=== PATIENT | female | born 1970 | race Two or more races ===

== ENCOUNTER 2016-02-22 16:38 | Emergency (ER) | payer OTHER ==
[~2016-02-22] VITALS: Ht 165.1 cm; Wt 90.7 kg
[~2016-02-22 16:38] MED LIST: ABILIFY10 MG ORAL; ALBUTEROL SULF8.5 GM INH; AMOXICILLIN500 MG ORAL; AMOXICILLIN500 MG PO; ATENOLOL25 MG ORAL; AUGMENTIN 875-1 EAC1 ORAL; AZITHROMYCIN250 MG ORAL; BENADRYL25 M3 PO; CITALOPRAM HBR20 M1 ORAL; CLEOCIN100 MG VG; DIFLUCAN150 MG PO; FLAGYL500 MG ORAL; HYDROCHLOROTHIA25 MG ORAL; HYDROCORTISO1 APPLIC TOPIC; IBUPROFEN600 M1 PO; IBUPROFEN600 MG ORAL; IBUPROFEN600 MG PO; KETOCONAZOLE15 GM TOP; LATUDA80 MG PO; LEVAQUIN750 MG ORAL; LITHIUM CARBON150 MG ORAL; LORAZEPAM0.5 MG ORAL; METROGEL-VAGINA70 G1 VAGIN; METRONIDAZOLE45 G1 TOPIC; METRONIDAZOLE500 MG ORAL; MULTI VITAMIN1 EACH ORAL; NEURONTIN600 MG PO; NIFEDIPINE XL30 M1 ORAL; NITROFURANTOIN100 M2 ORAL; NKM; NORCO 5-325 TA1 EACH ORAL; NORCO 5-325 TA1 EACH PO; OCUFLOX5 ML OP; QUETIAPINE FUMA25 MG ORAL; ROBITUSSIN LON118 ML PO; SEROQUEL200 MG ORAL; SEROQUEL25 MG ORAL; SKELAXIN800 MG PO; TEGRETOL200 MG PO; TERAZOL 320 GM VG; VIBRAMYCIN100 MG ORAL; XOPENEX HFA15 GM INH; ZOFRAN ODT4 MG ORAL
--- NOTE | 2016-02-22 17:02 | Emergency Room Report ---
History of Present Illness General Chief Complaint: Dizziness Source: Patient Present Illness HPI Patient is a 45-year-old female who presented after having increased dizziness. The patient reports having increased spinning sensation worse with head movement. The patient denies any recent fever or ear pain or ringing in her ears. The patient denies worsening of dizziness with upright position. She had recently been started on Invega. She receives [facility] 3 months through [facility]. The patient reports having a gradual onset of symptoms. Allergies: Coded Allergies: LITHIUM (Unverified Allergy, Unknown, 06/13/14) PREDNISONE (Verified Allergy, Unknown, 12/27/13) SULFA (SULFONAMIDE ANTIBIOTICS) (Unverified Allergy, Unknown, 06/13/14) Patient History Past Medical History: see triage record Last Menstrual Period: 02/10/16 Now: No Reviewed Nursing Documentation: PMH: Agreed, PSxH: Agreed Nursing Documentation-PMH Hx Cardiac Problems: No - right leg cyst, tonsillectomy Hx Hypertension: No Hx Pacemaker: No Hx Asthma: No Hx COPD: No Hx Diabetes: No Hx Cancer: No Hx Dialysis: No Hx Neurological Problems: No Hx Cerebrovascular Accident: No Hx Seizures: No Review of Systems All Other Systems: negative except mentioned in HPI Physical Exam Vital Signs Date Time Temp Pulse Resp B/P Pulse Ox O2 Delivery O2 Flow Rate FiO2 02/22/16 16:49 98.1 112 17 139/83 96 Room Air Sp02 EP Interpretation: reviewed, normal General Appearance: normal inspection, well appearing, no apparent distress, alert, GCS 15 Head: atraumatic ENT: normal ENT inspection, hearing grossly normal, normal voice Neck: normal inspection, full range of motion, supple, no bony tend Respiratory: normal inspection, lungs clear, normal breath sounds, no respiratory distress, no retraction, no wheezing Cardiovascular #1: regular rate, rhythm, no edema Gastrointestinal: normal inspection, normal bowel sounds, non tender, soft, no guarding, no hernia Genitourinary: no CVA tenderness Musculoskeletal: normal inspection, back normal, normal range of motion Neurologic: normal inspection, alert, oriented x3, responsive, pinion sorter III-XII nml as tested, speech normal Psychiatric: normal inspection, judgement/insight normal, mood/affect normal Skin: normal inspection, normal color, no rash Medical Decision Making Diagnostic Impression: Primary Impression: Benign paroxysmal positional vertigo ER Course Patient presented for dizziness. Differential diagnosis included was not limited to CVA, vertebrobasilar insufficiency, myocardial infarction, benign positional vertigo, labyrinthitis, aspirin overdose among others. Because of complexity of patient's case laboratory testing and imaging studies were ordered. The patient was given oral meclizine. The patient is advised to follow up with primary care doctor in 1-2 days. Patient is advised to return if any worsening condition or if any changes in status that are concerning. Labs Test 02/22/16 17:10 White Blood Count 8.1 K/UL (4.8-10.8) Red Blood Count 4.92 M/UL (4.20-5.40) Hemoglobin 14.8 G/DL (12.0-16.0) Hematocrit 45.4 % (37.0-47.0) Mean Corpuscular Volume 92 FL (80-99) Mean Corpuscular Hemoglobin 30.0 PG (27.0-31.0) Mean Corpuscular Hemoglobin Concent 32.6 G/DL (32.0-36.0) Red Cell Distribution Width 12.9 % (11.6-14.8) Platelet Count 269 K/UL (150-450) Mean Platelet Volume 6.5 FL (6.5-10.1) Neutrophils (%) (Auto) 58.5 % (45.0-75.0) Lymphocytes (%) (Auto) 32.0 % (20.0-45.0) Monocytes (%) (Auto) 6.1 % (1.0-10.0) Eosinophils (%) (Auto) 2.4 % (0.0-3.0) Basophils (%) (Auto) 1.1 % (0.0-2.0) Urine Color Yellow Urine Appearance Clear Urine pH 6 (4.5-8.0) Urine Specific [place] 1.025 (1.005-1.035) Urine Protein 1+ (NEGATIVE) Urine Glucose (UA) Negative (NEGATIVE) Urine Ketones Negative (NEGATIVE) Urine Occult Blood Negative (NEGATIVE) Urine Nitrite Negative (NEGATIVE) Urine Bilirubin Negative (NEGATIVE) Urine Urobilinogen 1 MG/DL (0.0-1.0) Urine Leukocyte Esterase 1+ (NEGATIVE) Urine RBC 0-2 /HPF (0 - 2) Urine WBC 0-2 /HPF (0 - 2) Urine Squamous Epithelial Cells Many /LPF (NONE/OCC) Urine Bacteria Moderate /HPF (NONE) Sodium Level 141 mEQ/L (135-145) Potassium Level 3.8 mEQ/L (3.4-4.9) Chloride Level 101 mEQ/L (98-107) Carbon Dioxide Level 25 mEQ/L (20-30) Anion Gap 15 (5-15) Blood Urea Nitrogen 11 mg/dL (7-23) Creatinine 0.8 mg/dL (0.5-0.9) Estimat Glomerular Filtration Rate > 60 mL/min (>60) Glucose Level 110 mg/dL (74-106) Calcium Level 9.7 mg/dL (8.6-10.2) Total Bilirubin 0.3 mg/dL (0.0-1.2) Aspartate Amino Transf (AST/SGOT) 12 U/L (5-40) Alanine Aminotransferase (ALT/SGPT) 8 U/L (3-33) Alkaline Phosphatase 80 U/L (35-104) Troponin I < 0.30 ng/mL (<=0.30) Total Protein 7.7 g/dL (6.6-8.7) Albumin 3.9 g/dL (3.5-5.2) Globulin 3.8 g/dL Albumin/Globulin Ratio 1.0 (1.0-2.7) Lipase 26 U/L (< 60) Urine Opiates Screen Negative (NEGATIVE) Urine Barbiturates Screen Negative (NEGATIVE) Phencyclidine (PCP) Screen Negative (NEGATIVE) Urine Amphetamines Screen Negative (NEGATIVE) Urine Benzodiazepines Screen Negative (NEGATIVE) Urine Cocaine Screen Negative (NEGATIVE) Urine Marijuana (THC) Screen Negative (NEGATIVE) Serum Alcohol < 10 mg/dL Last Vital Signs Date Time Temp Pulse Resp B/P Pulse Ox O2 Delivery O2 Flow Rate FiO2 02/22/16 16:49 98.1 112 17 139/83 96 Room Air Status: improved Disposition: HOME, SELF-CARE Condition: Stable Scripts Meclizine Hcl* (MECLIZINE*) 25 Mg Tablet 25 MG ORAL THREE TIMES A DAY, #14 TAB Prov: Ignacio Aguilar 02/22/16 Ignacio Aguilar Feb 22, 2016 17:02
[2016-02-22 17:19] LABS: BASOPHILS % (AUTO) 1.1 % (0.0-2.0); EOSINOPHILS % (AUTO) 2.4 % (0.0-3.0); MEAN CORPUSCULAR HGB CONC 32.6 G/DL (32.0-36.0); MEAN CORPUSCULAR VOLUME 92 FL (80-99); MEAN PLATELET VOLUME 6.5 FL (6.5-10.1); MONOCYTES % (AUTO) 6.1 % (1.0-10.0); NEUTROPHILS % (AUTO) 58.5 % (45.0-75.0); PLATELET COUNT 269 K/UL (150-450); RED BLOOD COUNT 4.92 M/UL (4.20-5.40); RED CELL DISTRIBUTION WIDTH 12.9 % (11.6-14.8); WHITE BLOOD COUNT 8.1 K/UL (4.8-10.8)
[2016-02-22 17:27] VITALS: BP 139/83
[2016-02-22] MEDS ORDERED: Meclizine 25mg tab ORAL ONE (17:30)
[2016-02-22 17:35] LABS: APPEARANCE,URINE CLEAR; KETONES,URINE NEGATIVE (NEGATIVE); LEUKOCYTE ESTERASE ,URINE 1+ (NEGATIVE); NITRITE,URINE NEGATIVE (NEGATIVE); PH,URINE 6 (4.5-8.0); PROTEIN,URINE 1+ (NEGATIVE); UROBILINOGEN,URINE 1 MG/DL (0.0-1.0)
[2016-02-22 17:45] LABS: TROPONIN I < 0.30 ng/mL (<=0.30)
[2016-02-22 17:48] LABS: ALANINE AMINOTRANSFERASE 8 U/L (3-33); ALCOHOL < 10 mg/dL; ANION GAP 15 (5-15); ASPARTATE AMINO TRANSFERASE 12 U/L (5-40); CALCIUM 9.7 mg/dL (8.6-10.2); CARBON DIOXIDE 25 mEQ/L (20-30); CHLORIDE 101 mEQ/L (98-107); CREATININE 0.8 mg/dL (0.5-0.9); GLOMERULAR FILTRATION RATE > 60 mL/min (>60); HEMOLYSIS 3; LIPASE 26 U/L (< 60); POTASSIUM 3.8 mEQ/L (3.4-4.9); SODIUM 141 mEQ/L (135-145); TOTAL PROTEIN 7.7 g/dL (6.6-8.7)
[2016-02-22 18:15] LABS: RBC,URINE 0-2 /HPF (0 - 2); WBC,URINE 0-2 /HPF (0 - 2)
[2016-02-22 18:16] LABS: BACTERIA,URINE MODERATE /HPF; SQUAMOUS EPITHELIAL CELL,UR MANY /LPF (NONE/OCC)
[2016-02-22] MEDS ORDERED: MECLIZINE HCL25 MG ORAL (18:19)
[2016-02-22 18:25] VITALS: BP 129/79
== END 2016-02-22 18:43 | disposition home or self-care (01) ==
LOC: EMR 17:05
DX: H81.10 Benign paroxysmal vertigo, unspecified ear (principal); Z88.8 Allergy status to other drugs, medicaments and biological substances; Z88.2 Allergy status to sulfonamides
CPT/HCPCS: 36415; 80053; 80300; 80329; 81001; 83690; 84484; 85025; 87086; 87181; 99283

== ENCOUNTER 2016-03-25 11:58 | Emergency (ER) | payer OTHER ==
[~2016-03-25] VITALS: Ht 165.1 cm; Wt 104.8 kg
[~2016-03-25 11:58] MED LIST changes: +MECLIZINE HCL25 MG ORAL
[2016-03-25 12:39] VITALS: BP 160/94
[2016-03-25] MEDS ORDERED: BENADRYL25 MG ORAL (12:56)
[2016-03-25] MEDS ORDERED: NAPHCON-A EYE D15 ML OP (12:56)
[2016-03-25 13:26] VITALS: BP 168/94
[2016-03-25 13:30] VITALS: BP 168/94
--- NOTE | 2016-03-25 21:30 | Emergency Room Report ---
History of Present Illness General Chief Complaint: Allergic Reaction Source: Patient, Significant Other Present Illness HPI Patient presents with 2 problems: The main complaint is that she has itching, swelling and white d/c from her eyes after use of artificial lash glue. This has happened once before. She was treated with drops which helped. There is some redness. No pain. No fevers. No change in vision. No URI sy, nasal congestion, sore throat. The second problem is that her significant other is concerned about her blood pressure. She has gained some weight recently and has never had to be treated for HTN. No change in urine, chest pain, headaches. Systolics today have been in the 150's to 160's. Allergies: Coded Allergies: LITHIUM (Unverified Allergy, Unknown, 06/13/14) PREDNISONE (Verified Allergy, Unknown, 12/27/13) SULFA (SULFONAMIDE ANTIBIOTICS) (Unverified Allergy, Unknown, 06/13/14) Patient History Past Medical History: see triage record Social History: Reports: smoking Social History Narrative with sig other Last Menstrual Period: 03/13/2016 Now: No : 4 Para: 4 Reviewed Nursing Documentation: PMH: Agreed, PSxH: Agreed Nursing Documentation-PMH Past Medical History: No Stated History Hx Cardiac Problems: No - right leg cyst, tonsillectomy Hx Hypertension: No Hx Pacemaker: No Hx Asthma: No Hx COPD: No Hx Diabetes: No Hx Cancer: No Hx Dialysis: No Hx Neurological Problems: No Hx Cerebrovascular Accident: No Hx Seizures: No Review of Systems All Other Systems: negative except mentioned in HPI Physical Exam Vital Signs Date Time Temp Pulse Resp B/P Pulse Ox O2 Delivery O2 Flow Rate FiO2 03/25/16 12:17 97.0 95 15 160/94 98 Room Air Sp02 EP Interpretation: reviewed, normal General Appearance: well appearing, no apparent distress, GCS 15 Head: normocephalic Eyes: bilateral eye EOMI, bilateral eye PERRL, bilateral eye Scleral Injection , bilateral eye lid inflammation - minimal edema, no discharge ENT: hearing grossly normal, normal pharynx, normal voice, moist mucus membranes Neck: supple Respiratory: lungs clear, normal breath sounds Cardiovascular #1: regular rate, rhythm Cardiovascular #2: 2+ radial (R) Gastrointestinal: normal inspection, normal bowel sounds, non tender, no mass, non-distended, overweight Musculoskeletal: back normal, gait/station normal, normal range of motion Neurologic: alert, oriented x3, grossly normal Psychiatric: mood/affect normal Skin: warm/dry, other - see lids Medical Decision Making Diagnostic Impression: Primary Impression: Allergic conjunctivitis Qualified Codes: H10.13 - Acute atopic conjunctivitis, bilateral Additional Impression: Possible hpertension ER Course Patient presents with eye inflammation. DDx: allergic conjunctivitis, bacterial or viral conjunctivitis. Based on hx and exam, allergic most likely. Will treat. Benadryl given here. The blood pressure is somewhat elevated. The significant other is insisting on starting blood pressure medication. I attempted to discuss rational and accepted course of setting goal for observation and lifestyle changes (exercise , weight loss and limitation of salt intake). Patient understands these. Significant other refuses to listen and cuts off physician explanation. (Sig other pressured and inappropriate.) Patient stable for outpatient observation and treatment. Last Vital Signs Date Time Temp Pulse Resp B/P Pulse Ox O2 Delivery O2 Flow Rate FiO2 03/25/16 13:30 97.0 98 16 168/94 100 Room Air Status: improved Disposition: HOME, SELF-CARE Condition: Stable Scripts Diphenhydramine Hcl* (BENADRYL*) 25 Mg Capsule 25 MG ORAL Q6H Y for Itching, #16 CAP Prov: Karthikeyan Oakley M.D. 03/25/16 Naphazoline Hcl/Phenir Mal (NAPHCON-A EYE DROPS) 15 Ml Drops 2 DROP OP Q6HR Y for eye itch and swell, #10 ML Prov: Karthikeyan Oakley M.D. 03/25/16 Patient Instructions: Allergies, Hypertension Additional Instructions: Reduce salt in your diet. 20 minutes of walking a day. Weight loss. Karthikeyan Oakley M.D. Mar 25, 2016 21:30
== END 2016-03-25 13:33 | disposition home or self-care (01) ==
LOC: EMR 12:42
DX: H10.13 Acute atopic conjunctivitis, bilateral (principal); F17.200 Nicotine dependence, unspecified, uncomplicated; Z88.8 Allergy status to other drugs, medicaments and biological substances; Z88.2 Allergy status to sulfonamides
CPT/HCPCS: 99284

== ENCOUNTER 2016-04-25 15:06 | Emergency (ER) | payer OTHER ==
[~2016-04-25] VITALS: Ht 167.6 cm; Wt 90.7 kg
[~2016-04-25 15:06] MED LIST changes: +BENADRYL25 MG ORAL; +NAPHCON-A EYE D15 ML OP
[2016-04-25 15:20] VITALS: BP 142/83
[2016-04-25 16:01] LABS: KETONES,URINE 2+ (NEGATIVE); LEUKOCYTE ESTERASE ,URINE 1+ (NEGATIVE); NITRITE,URINE NEGATIVE (NEGATIVE); PH,URINE 6 (4.5-8.0); PROTEIN,URINE 1+ (NEGATIVE); UROBILINOGEN,URINE 1 MG/DL (0.0-1.0)
--- NOTE | 2016-04-25 16:23 | Emergency Room Report ---
History of Present Illness General Chief Complaint: Female Urogenital Problems Source: Patient Present Illness HPI 45-year-old female presents to emergency Department complaining of mcgowan vaginal discharge with malodor x1 week. Patient denies recent unprotected intercourse. Patient states that after she got she used infection denies recent antibiotic use. Patient denies dysuria, hematuria or abdominal pain. Denies . She denies nausea vomiting fevers or chills. Denies CP, Palpitations, LOC, AMS, dizziness, Changes in Vision, Sensation, paresthesias, or a sudden severe headache. Allergies: Coded Allergies: LITHIUM (Unverified Allergy, Unknown, 06/13/14) PREDNISONE (Verified Allergy, Unknown, 12/27/13) SULFA (SULFONAMIDE ANTIBIOTICS) (Unverified Allergy, Unknown, 06/13/14) Patient History Past Medical History: see triage record Past Surgical History: none Pertinent Family History: none Last Menstrual Period: 03/17/16 Now: No Immunizations: UTD Reviewed Nursing Documentation: PMH: Agreed, PSxH: Agreed Nursing Documentation-PMH Past Medical History: No Stated History Hx Cardiac Problems: No - right leg cyst, tonsillectomy Hx Hypertension: No Hx Pacemaker: No Hx Asthma: No Hx COPD: No Hx Diabetes: No Hx Cancer: No Hx Dialysis: No Hx Neurological Problems: No Hx Cerebrovascular Accident: No Hx Seizures: No Review of Systems All Other Systems: negative except mentioned in HPI Physical Exam Vital Signs Date Time Temp Pulse Resp B/P Pulse Ox O2 Delivery O2 Flow Rate FiO2 04/25/16 15:13 97.5 108 16 142/83 100 Room Air Sp02 EP Interpretation: reviewed, normal General Appearance: no apparent distress, alert, GCS 15, non-toxic Head: normocephalic, atraumatic Eyes: bilateral eye PERRL, bilateral eye normal inspection ENT: hearing grossly normal, normal pharynx, no angioedema, normal voice Neck: full range of motion, supple/symm/no masses Respiratory: chest non-tender, lungs clear, normal breath sounds, speaking full sentences Cardiovascular #1: regular rate, rhythm, no edema Gastrointestinal: normal bowel sounds, non tender, soft, no guarding, no rebound, other - Negative [place] signs, Negative MacBurney's sign, Negative Rosvigns Sign, Negative Psoas, No Peritoneal signs. no TTP Rectal: deferred Genitourinary: normal inspection, no CVA tenderness, adnexa normal, bladder normal, cervix normal, other - no CMT, no strawberry cervix Musculoskeletal: back normal, gait/station normal, normal range of motion, non- tender, no calf tenderness Neurologic: alert, oriented x3, responsive, motor strength/tone normal, sensory intact, speech normal Psychiatric: judgement/insight normal, memory normal, mood/affect normal, no suicidal/homicidal ideation Skin: normal color, no rash, warm/dry, well hydrated Lymphatic: no adenopathy Medical Decision Making PA Attestation Dr. Aguilar is my supervising Physician whom patient management has been discussed with. Diagnostic Impression: Primary Impression: Vaginal discharge ER Course 45-year-old female presents to emergency Department complaining of mcgowan vaginal discharge with malodor x1 week. Patient denies recent unprotected intercourse. Patient states that after she got she used infection denies recent antibiotic use. Patient denies dysuria, hematuria or abdominal pain. Denies . She denies nausea vomiting fevers or chills. Ddx considered but are not limited to UTi , STI, G & C, trichomonas, Vaginitis , cervicitis, PID, BV, yeast infection Vital signs: are WNL, pt. is afebrile H&PE are most consistent with most likely BV will do wet mount and send for G & C culture ORDERS: - WET Mount: no organisms, no yeasts, bacteria noted. - Urine G & C : Pending -UA: few bacteria moderate epithelia cells, no wbc's or leukocytes- most likely contamination. ED INTERVENTIONS: - d/w pt. that G&C is send out. and I will contact her as one of my call-backs once I receive the results. -Pt. declines offer to be treated empirically DISCHARGE: At this time pt. is stable for d/c to home. Will provide printed patient care instructions, and any necessary prescriptions. Care plan and follow up instructions have been discussed with the patient prior to discharge. Labs Test 04/25/16 15:45 Urine Color Pale yellow Urine Appearance Slightly cloudy Urine pH 6 (4.5-8.0) Urine Specific [place] 1.015 (1.005-1.035) Urine Protein 1+ (NEGATIVE) Urine Glucose (UA) Negative (NEGATIVE) Urine Ketones 2+ (NEGATIVE) Urine Occult Blood Negative (NEGATIVE) Urine Nitrite Negative (NEGATIVE) Urine Bilirubin Negative (NEGATIVE) Urine Urobilinogen 1 MG/DL (0.0-1.0) Urine Leukocyte Esterase 1+ (NEGATIVE) Urine RBC 0-2 /HPF (0 - 2) Urine WBC 2-4 /HPF (0 - 2) Urine Squamous Epithelial Cells Many /LPF (NONE/OCC) Urine Bacteria Few /HPF (NONE) Last Vital Signs Date Time Temp Pulse Resp B/P Pulse Ox O2 Delivery O2 Flow Rate FiO2 04/25/16 15:20 97.5 81 16 142/83 100 Room Air Disposition: HOME, SELF-CARE Condition: Stable Referrals: [facility],REFERRING (PCP) Patient Instructions: Chlamydia Test, Gonorrhea Testing Additional Instructions: Take medications as directed. Follow up with PCP in 3-5 days Return sooner to ED if new symptoms occur, or current symptoms become worse. - Please note that this Emergency Department Report was dictated using [employer] availability leader technology software, occasionally this can lead to erroneous entry secondary to interpretation by the dictation equipment. Eneida Barcenas Apr 25, 2016 16:23
[2016-04-25 16:31] LABS: APPEARANCE,URINE SLIGHTLY CLOUDY
[2016-04-25 16:34] LABS: BACTERIA,URINE FEW /HPF; RBC,URINE 0-2 /HPF (0 - 2); SQUAMOUS EPITHELIAL CELL,UR MANY /LPF (NONE/OCC)
[2016-04-25 17:09] VITALS: BP 139/78
== END 2016-04-25 17:10 | disposition home or self-care (01) ==
LOC: EMR 15:20
DX: N89.8 Other specified noninflammatory disorders of vagina (principal); Z88.8 Allergy status to other drugs, medicaments and biological substances; Z88.2 Allergy status to sulfonamides
CPT/HCPCS: 81003; 87210; 87491; 87590; 99283

== ENCOUNTER 2016-12-13 17:42 | Emergency (ER) | payer OTHER ==
[~2016-12-13] VITALS: Ht 165.1 cm; Wt 81.6 kg
[2016-12-13] MEDS ORDERED: PROMETHAZI6.25 MG/1 ORAL (18:59)
[2016-12-13] MEDS ORDERED: FLONASE ALLERG9.9 ML NS (18:59)
[2016-12-13] MEDS ORDERED: SUDAFED 12 HOU120 M1 PO (18:59)
[2016-12-13 19:02] VITALS: BP 168/95
--- NOTE | 2016-12-13 23:30 | Emergency Room Report ---
History of Present Illness General Chief Complaint: Flu Like Symptoms Source: Patient Present Illness HPI The patient is a 46-year-old female presenting for nasal congestion, sneezing, and cough for the past week. She does admit to a history of allergies. She denies any known sick contacts or recent travel. She denies any fever or chills. She denies any other symptoms including shortness of breath Allergies: Coded Allergies: LITHIUM (Unverified Allergy, Unknown, 06/13/14) PREDNISONE (Verified Allergy, Unknown, 12/27/13) SULFA (SULFONAMIDE ANTIBIOTICS) (Unverified Allergy, Unknown, 06/13/14) Patient History Past Medical History: see triage record Pertinent Family History: none Last Menstrual Period: 11/30/16 Now: No Reviewed Nursing Documentation: PMH: Agreed, PSxH: Agreed Nursing Documentation-PMH Past Medical History: No Stated History Hx Cardiac Problems: No - right leg cyst, tonsillectomy Hx Hypertension: No Hx Pacemaker: No Hx Asthma: No Hx COPD: No Hx Diabetes: No Hx Cancer: No Hx Dialysis: No Hx Neurological Problems: No Hx Cerebrovascular Accident: No Hx Seizures: No Review of Systems All Other Systems: negative except mentioned in HPI Physical Exam Vital Signs Date Time Temp Pulse Resp B/P (MAP) Pulse Ox O2 Delivery O2 Flow Rate FiO2 12/13/16 17:59 97.5 102 16 168/95 98 Room Air Sp02 EP Interpretation: reviewed, normal General Appearance: no apparent distress, alert, GCS 15, non-toxic Head: normocephalic, atraumatic Eyes: bilateral eye normal inspection, bilateral eye PERRL ENT: hearing grossly normal, normal pharynx, no angioedema, normal voice, uvula midline, nasal congestion Neck: full range of motion, supple/symm/no masses Respiratory: chest non-tender, lungs clear, normal breath sounds, no wheezing, speaking full sentences Cardiovascular #1: regular rate, rhythm, no edema Musculoskeletal: back normal, gait/station normal, normal range of motion, non- tender Neurologic: alert, oriented x3, responsive, motor strength/tone normal, sensory intact, speech normal Psychiatric: judgement/insight normal, memory normal, mood/affect normal, no suicidal/homicidal ideation Skin: normal color, no rash, warm/dry, well hydrated Lymphatic: no adenopathy Medical Decision Making PA Attestation Dr. Singleton is my supervising physician. Patient management was discussed with my supervising physician Diagnostic Impression: Primary Impression: Allergic rhinitis Qualified Codes: J30.9 - Allergic rhinitis, unspecified ER Course The patient is a 46-year-old female presenting for nasal congestion, sneezing, and cough Differential diagnosis considered not limited to: Pharyngitis, sinusitis, rhinitis, bronchitis, pneumonia, among others Physical exam: Afebrile. No apparent distress HEENT exam reveals bilateral nasal congestion Otherwise unremarkable Chest x-ray unremarkable The patient be discharged home with prescription for Flonase, Sudafed, and cough medication. She will follow up with her primary doctor. Chest X-Ray Diagnostic Results Chest X-Ray Diagnostic Results : Chest X-Ray Ordered: Yes # of Views/Limited/Complete: 1 View Indication: Other - cough EP Interpretation: Yes Interpretation: no consolidation, no effusion, no pneumothorax Impression: No acute disease Electronically Signed by: Ace johnson PA-C PA Scribe Text my and my supervising physician's interpretation of the chest xrays are there is no consolidation, no effusion, no acute cardiopulmonary disease, no pneumothorax Last Vital Signs Date Time Temp Pulse Resp B/P (MAP) Pulse Ox O2 Delivery O2 Flow Rate FiO2 12/13/16 19:02 97.5 100 16 168/95 98 Room Air Status: improved Disposition: HOME, SELF-CARE Condition: Improved Scripts Promethazine Hcl (PROMETHAZINE HCL*) 6.25 Mg/5 Ml Syrup 5 ML ORAL Q8H, #120 ML 0 Refills Prov: TERZIAN,ACE P.A. 12/13/16 Pseudoephedrine Hcl (SUDAFED 12 HOUR) 120 Mg Tablet.er 120 MG PO BID, #30 TAB Prov: TERZIAN,ACE P.A. 12/13/16 Fluticasone Propionate (Flonase Allergy Relief) 9.9 Ml Bryan.susp 1 SPRAYS NS DAILY, #10 ML Prov: TERZIAN,ACE P.A. 12/13/16 Patient Instructions: Allergic Rhinitis Additional Instructions: I discussed my findings with the patient. All questions and concerns have been answered. Treatment and medication compliance have been addressed. I advised the patient that they need to follow up with PMD in 3-5 days. Return to ED if pain remains or worsens, cough worsens or remains, you notice blood in your sputum, you notice wheezing, you experience a fever, or if needed for any reason. Patient verbalized understanding of discharge instructions. ACE JOHNSON Dec 13, 2016 23:30
--- NOTE | 2016-12-14 10:42 | Diagnostic Imaging Report ---
Indication: PAIN, cough Technique: One view of the chest Comparison: 04/04/2013 Findings: Lungs and pleural spaces are clear. Heart size is normal. No significant interim change Impression: No acute process
== END 2016-12-13 19:25 | disposition home or self-care (01) ==
LOC: EMR 18:29
DX: J30.9 Allergic rhinitis, unspecified (principal); Z88.2 Allergy status to sulfonamides; Z88.8 Allergy status to other drugs, medicaments and biological substances
CPT/HCPCS: 71010; 99284

== ENCOUNTER 2017-02-27 16:42 | Emergency (ER) | payer OTHER ==
[~2017-02-27] VITALS: Ht 157.5 cm; Wt 110.2 kg
[~2017-02-27 16:42] MED LIST changes: +FLONASE ALLERG9.9 ML NS; +PROMETHAZI6.25 MG/1 ORAL; +SUDAFED 12 HOU120 M1 PO
[2017-02-27 17:30] VITALS: BP 172/97
--- NOTE | 2017-02-27 18:29 | Emergency Room Report ---
History of Present Illness General Chief Complaint: General Complaint Source: Patient Present Illness HPI 46-year-old female, history of psych issues, brought in with her family member, for feeling like "there is liquid feeling in my head and my body" She states that she cannot exactly explain that she is feeling, but states that she is not in pain. She does not have any headache neck pain, chest pain shortness of breath, motor and sensory weakness. No SI or HI. No auditory hallucinations. States that she is been eating and drinking normally Allergies: Coded Allergies: LITHIUM (Unverified Allergy, Unknown, 06/13/14) PENICILLINS (Verified Allergy, Unknown, 02/27/17) Swelling and Seizures PREDNISONE (Verified Allergy, Unknown, 12/27/13) SULFA (SULFONAMIDE ANTIBIOTICS) (Unverified Allergy, Unknown, 06/13/14) Patient History Past Medical History: see triage record Past Surgical History: none Pertinent Family History: none Last Menstrual Period: 02/19/17 Now: No Reviewed Nursing Documentation: PMH: Agreed, PSxH: Agreed Nursing Documentation-PMH Hx Cardiac Problems: No - right leg cyst, tonsillectomy Hx Hypertension: No Hx Pacemaker: No Hx Asthma: No Hx COPD: No Hx Diabetes: No Hx Cancer: No Hx Dialysis: No Hx Neurological Problems: No Hx Cerebrovascular Accident: No Hx Seizures: No Review of Systems All Other Systems: negative except mentioned in HPI Physical Exam Vital Signs Date Time Temp Pulse Resp B/P (MAP) Pulse Ox O2 Delivery O2 Flow Rate FiO2 02/27/17 17:10 98.2 86 17 172/97 98 Room Air Sp02 EP Interpretation: reviewed, normal General Appearance: normal inspection, well appearing, no apparent distress, alert, GCS 15, non-toxic Head: normocephalic, atraumatic Eyes: bilateral eye normal inspection, bilateral eye PERRL, bilateral eye EOMI ENT: normal ENT inspection, normal pharynx, normal voice, moist mucus membranes Neck: normal inspection, full range of motion, supple Respiratory: normal inspection, lungs clear, normal breath sounds, no respiratory distress, no retraction, no wheezing, speaking full sentences, chest symmetrical Cardiovascular #1: normal inspection, regular rate, rhythm, no edema, normal capillary refill Cardiovascular #2: 2+ radial (R), 2+ radial (L) Gastrointestinal: normal inspection, non tender, soft, non-distended, no guarding Musculoskeletal: normal inspection, back normal, normal range of motion, non- tender Neurologic: normal inspection, alert, oriented x3, responsive, motor strength/ tone normal, sensory intact, normal gait, speech normal Psychiatric: normal inspection, judgement/insight normal, memory normal Skin: normal inspection, normal color, no rash, warm/dry, well hydrated, normal turgor Medical Decision Making Diagnostic Impression: Primary Impression: Visit for [employer] [place] check ER Course 46-year-old female with " liquid feeling" in her body DDX: There is no apparent findings on physical exam. She is conversing with her family member, not in acute distress Neurological exam is completely normal Plan: None ER course: Patient has remained stable during ED stay. Disposition: Patient is to be discharged to home. Patient is instructed to follow up with their primary care doctor within 5 days. Please note that this Emergency Department Report was dictated using [employer] chlorinator technology software, occasionally this can lead to erroneous entry secondary to interpretation by the dictation equipment Last Vital Signs Date Time Temp Pulse Resp B/P (MAP) Pulse Ox O2 Delivery O2 Flow Rate FiO2 02/27/17 17:30 98.2 17 172/97 98 Room Air 02/27/17 17:10 86 Disposition: HOME, SELF-CARE Condition: Stable Referrals: [facility],REFERR[facility] (PCP) Additional Instructions: PLEASE FOLLOW UP WITH YOUR DOCTOR IN 1 WEEK WITHOUT FAIL Please come back to the emergency room if you are having headache, chest pain, shortness of breath, or intractable nausea or vomiting Fernando Montes De Oca M.D. Feb 27, 2017 18:29
== END 2017-02-27 17:40 | disposition home or self-care (01) ==
LOC: EMR 17:32
DX: Z04.8 Encounter for examination and observation for other specified reasons (principal); Z88.0 Allergy status to penicillin; Z88.2 Allergy status to sulfonamides; Z88.8 Allergy status to other drugs, medicaments and biological substances
CPT/HCPCS: 99282

== ENCOUNTER 2017-06-20 09:19 | Emergency (ER) | payer OTHER ==
[~2017-06-20] VITALS: Ht 165.1 cm; Wt 81.6 kg
[2017-06-20 10:11] LABS: BASOPHILS % (AUTO) 0.6 % (0.0-2.0); EOSINOPHILS % (AUTO) 2.2 % (0.0-3.0); HEMATOCRIT 43.4 % (37.0-47.0); HEMOGLOBIN 14.3 G/DL (12.0-16.0); LYMPHOCYTES % (AUTO) 31.5 % (20.0-45.0); MEAN CORPUSCULAR VOLUME 85 FL (80-99); NEUTROPHILS % (AUTO) 58.7 % (45.0-75.0); PLATELET COUNT 225 K/UL (150-450); RED BLOOD COUNT 5.08 M/UL (4.20-5.40); RED CELL DISTRIBUTION WIDTH 14.3 % (11.6-14.8); WHITE BLOOD COUNT 5.3 K/UL (4.8-10.8)
[2017-06-20 10:17] LABS: ANION GAP 8 mmol/L (5-15); BLOOD UREA NITROGEN 9 mg/dL (7-18); CALCIUM 9.2 MG/DL (8.5-10.1); CARBON DIOXIDE 27 MMOL/L (21-32); CHLORIDE 104 MMOL/L (98-107); CREATININE 0.8 MG/DL (0.55-1.30); POTASSIUM 3.5 MMOL/L (3.5-5.1); SODIUM 139 MMOL/L (136-145)
[2017-06-20 10:46] VITALS: BP 175/120
--- NOTE | 2017-06-20 10:53 | Emergency Room Report ---
History of Present Illness General Chief Complaint: Hypertension Source: Patient Present Illness HPI Patient had blood pressure checked this morning and it was elevated Had reading of 180s and presents for evaluation patient reports that she has been going through a lot of personal dilemmas and feels that this has escalated her blood pressure She initially was told about possible high blood pressure after her as well Denies any chest pain Denies any headache Otherwise does not have any medical complaints has not been on any medications for many years Allergies: Coded Allergies: LITHIUM (Unverified Allergy, Unknown, 06/13/14) PENICILLINS (Verified Allergy, Unknown, 02/27/17) Swelling and Seizures PREDNISONE (Verified Allergy, Unknown, 12/27/13) SULFA (SULFONAMIDE ANTIBIOTICS) (Unverified Allergy, Unknown, 06/13/14) Patient History Past Medical History: see triage record Pertinent Family History: none Last Menstrual Period: 2 weeks ago Now: No Reviewed Nursing Documentation: PMH: Agreed; PSxH: Agreed Nursing Documentation-PMH Hx Cardiac Problems: No - right leg cyst, tonsillectomy Hx Hypertension: Yes Hx Pacemaker: No Hx Asthma: No Hx COPD: No Hx Diabetes: No Hx Cancer: No Hx Dialysis: No Hx Neurological Problems: No Hx Cerebrovascular Accident: No Hx Seizures: No Review of Systems All Other Systems: negative except mentioned in HPI Physical Exam Vital Signs Date Time Temp Pulse Resp B/P (MAP) Pulse Ox O2 Delivery O2 Flow Rate FiO2 06/20/17 09:26 98.1 78 20 175/97 95 98.1 06/20/17 09:36 Room Air Sp02 EP Interpretation: reviewed, normal General Appearance: well appearing, no apparent distress Head: normocephalic, atraumatic Eyes: bilateral eye PERRL, bilateral eye EOMI ENT: hearing grossly normal, normal pharynx, TMs + canals normal, uvula midline Neck: full range of motion, supple, no meningismus, no bony tend Respiratory: lungs clear, normal breath sounds, no rhonchi, no respiratory distress, no retraction, no accessory muscle use Cardiovascular #1: normal peripheral pulses, regular rate, rhythm, no edema, no gallop, no JVD, no murmur Gastrointestinal: normal bowel sounds, non tender, soft, no mass, no organomegaly, non-distended, no guarding, no hernia, no pulsatile mass, no rebound Genitourinary: no CVA tenderness Musculoskeletal: normal inspection Neurologic: oriented x3, responsive, burial vault maker III-XII nml as tested, motor strength/ tone normal, sensory intact Psychiatric: mood/affect normal Skin: normal color, no rash, warm/dry, palpation normal Lymphatic: normal inspection, no adenopathy Medical Decision Making Diagnostic Impression: Primary Impression: Hypertension ER Course Patient had initial baseline blood work initiated to evaluate for kidney disease and other pathology leading to high blood pressure At this time blood work all within normal limits While in the emergency room patient did go to smoke outside she was discussed regarding smoking cessation Last Vital Signs Date Time Temp Pulse Resp B/P (MAP) Pulse Ox O2 Delivery O2 Flow Rate FiO2 06/20/17 10:46 98.1 76 18 175/120 98 Room Air 98.1 Referrals: [facility],REFERRING (PCP) Cecille Turpin DO Jun 20, 2017 10:53
[2017-06-20] MEDS ORDERED: NORVASC5 MG ORAL (10:56)
[2017-06-20 11:15] VITALS: BP 178/104
== END 2017-06-20 11:15 | disposition home or self-care (01) ==
LOC: EMR 09:58
DX: I10 Essential (primary) hypertension (principal); Z88.0 Allergy status to penicillin; Z88.2 Allergy status to sulfonamides; Z88.8 Allergy status to other drugs, medicaments and biological substances
CPT/HCPCS: 36415; 80048; 80307; 81025; 85025; 99282

== ENCOUNTER 2017-06-29 19:12 | Emergency (ER) | payer OTHER ==
[~2017-06-29] VITALS: Ht 165.1 cm; Wt 99.8 kg
[~2017-06-29 19:12] MED LIST changes: +NORVASC5 MG ORAL
[2017-06-29 20:08] VITALS: BP 148/98
--- NOTE | 2017-06-29 21:12 | Emergency Room Report ---
History of Present Illness General Chief Complaint: Vaginal Source: Patient Present Illness HPI 46-year-old female presents to the emergency department for pelvic exam she reports urinary frequency and urgency she denies dysuria. Patient states that her partner has reported that she has some discharge with an odor however patient believes she does not have a malodor. Patient reports recent unprotected intercourse. Patient denies abdominal pain, external vaginal lesions, rashes, swollen tender lymph nodes or joint pain. Denies nausea, vomiting or . Allergies: Coded Allergies: LITHIUM (Unverified Allergy, Unknown, 06/13/14) PENICILLINS (Verified Allergy, Unknown, 02/27/17) Swelling and Seizures PREDNISONE (Verified Allergy, Unknown, 12/27/13) SULFA (SULFONAMIDE ANTIBIOTICS) (Unverified Allergy, Unknown, 06/13/14) Patient History Past Medical History: see triage record Past Surgical History: none Pertinent Family History: none Last Menstrual Period: a week ago Now: No Immunizations: UTD Reviewed Nursing Documentation: PMH: Agreed; PSxH: Agreed Nursing Documentation-PMH Hx Cardiac Problems: No - right leg cyst, tonsillectomy Hx Hypertension: Yes Hx Pacemaker: No Hx Asthma: No Hx COPD: No Hx Diabetes: No Hx Cancer: No Hx Dialysis: No Hx Neurological Problems: No Hx Cerebrovascular Accident: No Hx Seizures: No Review of Systems All Other Systems: negative except mentioned in HPI Physical Exam Vital Signs Date Time Temp Pulse Resp B/P (MAP) Pulse Ox O2 Delivery O2 Flow Rate FiO2 06/29/17 19:30 98.2 89 18 155/101 99 Room Air 98.2 Sp02 EP Interpretation: reviewed, normal General Appearance: no apparent distress, alert, GCS 15, non-toxic Head: normocephalic, atraumatic Eyes: bilateral eye normal inspection, bilateral eye PERRL ENT: hearing grossly normal, normal voice Neck: full range of motion Respiratory: chest non-tender, lungs clear, normal breath sounds, speaking full sentences Cardiovascular #1: regular rate, rhythm Gastrointestinal: normal bowel sounds, non tender, soft Genitourinary: normal inspection, no CVA tenderness, adnexa normal, ext genitalia/vag normal, other - milky white d/c noted on exam. no CMT Musculoskeletal: back normal, gait/station normal, normal range of motion, non- tender Neurologic: alert, oriented x3, responsive, motor strength/tone normal, sensory intact, speech normal, grossly normal Psychiatric: judgement/insight normal Skin: normal color, no rash, warm/dry, well hydrated Lymphatic: no adenopathy Medical Decision Making PA Attestation Dr. Hyman is my supervising physician whom pt. management has been discussed with. Diagnostic Impression: Primary Impression: Vaginal discharge Additional Impression: UTI (lower urinary tract infection) ER Course 46-year-old female presents to the emergency department for pelvic exam she reports urinary frequency and urgency she denies dysuria. Patient states that her partner has reported that she has some discharge with an odor however patient believes she does not have a malodor. Patient reports recent unprotected intercourse. Patient denies abdominal pain, external vaginal lesions, rashes, swollen tender lymph nodes or joint pain. Denies nausea, vomiting or . Ddx considered but are not limited to UTi , Pyelo, STI, Stone, Cystitis, vaginal laceration, vaginitis. Vital signs: are WNL, pt. is afebrile H& PE are most consistent with: Vaginitis ORDERS: - UA labs are attached - Presence of bacteria as well as elevated leukocyte esterase Will treat as UTI - [place] :Few trichomonas, elevated white blood cells and no clue cells and no yeast ED INTERVENTIONS: -none required at this time. reviewed lab results and treatment plan with pt. DISCHARGE: At this time pt. is stable for d/c to home. Will provide printed patient care instructions, and any necessary prescriptions. Care plan and follow up instructions have been discussed with the patient prior to discharge. discussed with the patient prior to discharge. Labs Test 06/29/17 20:18 Urine Color Yellow Urine Appearance Very cloudy Urine pH 5 (4.5-8.0) Urine Specific [place] 1.025 (1.005-1.035) Urine Protein 2+ (NEGATIVE) Urine Glucose (UA) Negative (NEGATIVE) Urine Ketones 1+ (NEGATIVE) Urine Occult Blood Negative (NEGATIVE) Urine Nitrite Negative (NEGATIVE) Urine Bilirubin Negative (NEGATIVE) Urine Urobilinogen 1 MG/DL (0.0-1.0) Urine Leukocyte Esterase 2+ (NEGATIVE) Urine RBC 0-2 /HPF (0 - 2) Urine WBC 2-4 /HPF (0 - 2) Urine Squamous Epithelial Cells Many /LPF (NONE/OCC) Urine Bacteria Many /HPF (NONE) Last Vital Signs Date Time Temp Pulse Resp B/P (MAP) Pulse Ox O2 Delivery O2 Flow Rate FiO2 06/29/17 20:08 98.2 84 18 148/98 99 Room Air 98.2 Disposition: HOME, SELF-CARE Condition: Stable Scripts Metronidazole* (FLAGYL*) 500 Mg Tablet 500 MG ORAL BID for 7 Days, #14 TAB 0 Refills Prov: Eneida Barcenas 06/29/17 Nitrofurantoin Monohyd/M-Cryst* (MACROBID 100 MG*) 100 Mg Capsule 100 MG ORAL EVERY 12 HOURS for 5 Days, #10 CAP Prov: Eneida Barcenas 06/29/17 Referrals: [facility],REFERRING (PCP) Patient Instructions: Trichomonas Test, Urinary Tract Infection, [id number] Additional Instructions: Take medications as directed. Follow up with a TERMINAL MANAGER within 3-5 days, even if your symptoms have resolved. Return sooner to ED if new symptoms occur, or current symptoms become worse. - Please note that this Emergency Department Report was dictated using [employer] instructor technology software, occasionally this can lead to erroneous entry secondary to interpretation by the dictation equipment. Eneida Barcenas June 29, 2017 21:12
[2017-06-29 21:47] LABS: APPEARANCE,URINE VERY CLOUDY; BILIRUBIN, URINE NEGATIVE (NEGATIVE); GLUCOSE, URINE (UA) NEGATIVE (NEGATIVE); KETONES,URINE 1+ (NEGATIVE); LEUKOCYTE ESTERASE ,URINE 2+ (NEGATIVE); NITRITE,URINE NEGATIVE (NEGATIVE); PH,URINE 5 (4.5-8.0); PROTEIN,URINE 2+ (NEGATIVE); UROBILINOGEN,URINE 1 MG/DL (0.0-1.0)
[2017-06-29 21:49] LABS: COLOR,URINE YELLOW
[2017-06-29] MEDS ORDERED: METRONIDAZOLE500 MG ORAL (22:15)
[2017-06-29] MEDS ORDERED: NITROFURANTOIN100 M2 ORAL (22:15)
[2017-06-29 22:20] VITALS: BP 145/98
== END 2017-06-29 22:31 | disposition home or self-care (01) ==
LOC: EMR 20:31
DX: N89.8 Other specified noninflammatory disorders of vagina (principal); N39.0 Urinary tract infection, site not specified; I10 Essential (primary) hypertension; Z88.0 Allergy status to penicillin; Z88.8 Allergy status to other drugs, medicaments and biological substances; Z88.2 Allergy status to sulfonamides
CPT/HCPCS: 81003; 87086; 87210; 99284

== ENCOUNTER 2017-07-15 18:25 | Emergency (ER) | payer OTHER ==
[~2017-07-15] VITALS: Ht 165.1 cm; Wt 98.0 kg
[2017-07-15 19:30] VITALS: BP 114/88
[2017-07-15 19:43] LABS: APPEARANCE,URINE SLIGHTLY CLOUDY; BILIRUBIN, URINE NEGATIVE (NEGATIVE); GLUCOSE, URINE (UA) NEGATIVE (NEGATIVE); KETONES,URINE 1+ (NEGATIVE); LEUKOCYTE ESTERASE ,URINE 1+ (NEGATIVE); NITRITE,URINE NEGATIVE (NEGATIVE); PH,URINE 5 (4.5-8.0); PROTEIN,URINE 1+ (NEGATIVE); UROBILINOGEN,URINE 1 MG/DL (0.0-1.0)
[2017-07-15 19:44] LABS: COLOR,URINE YELLOW
--- NOTE | 2017-07-15 20:08 | Emergency Room Report ---
History of Present Illness General Chief Complaint: Vaginal Source: Patient Present Illness HPI 46-year-old female patient presents ER requesting repeat UA to check for urinary tract infection. Patient denies any symptoms at this time. Patient denies vaginal discharge, dysuria, hematuria. Patient denies recent sexual activity, denies history of STI. Reports last menstrual period 2 weeks ago, denies . Reports has not had recent sexual contact since previously being treated with antibiotics at previous visit on Z2 weeks ago. Denies fever , chest pain, shortness breath, abdominal pain, back pain, vomiting. Allergies: Coded Allergies: LITHIUM (Unverified Allergy, Unknown, 06/13/14) PENICILLINS (Verified Allergy, Unknown, 02/27/17) Swelling and Seizures PREDNISONE (Verified Allergy, Unknown, 12/27/13) SULFA (SULFONAMIDE ANTIBIOTICS) (Unverified Allergy, Unknown, 06/13/14) Patient History Past Medical History: see triage record Last Menstrual Period: 2 weeks ago Reviewed Nursing Documentation: PMH: Agreed; PSxH: Agreed Nursing Documentation-PMH Past Medical History: No History, Except For Hx Cardiac Problems: No - tonsillectomy Hx Hypertension: Yes Hx Pacemaker: No Hx Asthma: No Hx COPD: No Hx Diabetes: No Hx Cancer: No Hx Dialysis: No Hx Neurological Problems: No Hx Cerebrovascular Accident: No Hx Seizures: No Review of Systems All Other Systems: negative except mentioned in HPI Physical Exam Vital Signs Date Time Temp Pulse Resp B/P (MAP) Pulse Ox O2 Delivery O2 Flow Rate FiO2 07/15/17 18:47 98.1 82 16 153/93 96 Room Air 98.1 Sp02 EP Interpretation: reviewed, normal General Appearance: well appearing, no apparent distress, alert, GCS 15, non- toxic Head: normocephalic, atraumatic Eyes: bilateral eye normal inspection, bilateral eye PERRL ENT: hearing grossly normal, normal pharynx, no angioedema, normal voice, uvula midline, moist mucus membranes Neck: full range of motion Respiratory: lungs clear, normal breath sounds, no rhonchi, no respiratory distress, no accessory muscle use, no wheezing, speaking full sentences Cardiovascular #1: regular rate, rhythm, no edema Gastrointestinal: non tender, soft, no mass, non-distended, no guarding, no rebound Genitourinary: no CVA tenderness Musculoskeletal: back normal, digits/nails normal, gait/station normal, normal range of motion, non-tender Neurologic: alert, oriented x3, responsive, motor strength/tone normal, sensory intact Psychiatric: mood/affect normal Skin: no rash Lymphatic: no adenopathy Medical Decision Making PA Attestation Dr. Aguilar is my supervising Physician whom patient management has been discussed with. Diagnostic Impression: Primary Impression: Hx of urinary tract infection ER Course Pt presents to ED c/o urinary symptoms. DDX considered but are not limited to cystitis, pyelonephritis, STI, vaginitis, . VITAL SIGNS are WNL, patient is afebrile. Ordered UA and urine . ER COURSE reviewed previous ER note and lab results. UA results show moderate epithelial cells, 1+ leukocyte esterase, negative nitrates, patient asymptomatic, low suspicion for UTI, does not require treatment with antibiotics at this time. Urine negative. Informed patient of results. If concern for STI, followup with STI clinic for testing and treatment. Denies STI concern. drink plenty of fluids. Follow with PCP and discuss referral to urology due to history of UTIs. Patient is resting comfortably in chair, nontoxic appearing, in no acute distress. Patient states they feel better and is ready to go home. ER precautions given. DISCHARGE Patient is stable for discharge. Patient resting comfortably, in no acute distress, nontoxic appearing, talking without difficulty. Will provide with patient care instructions and any necessary prescriptions. Patient understands and agrees to treatment plan. Patient encouraged to drink plenty of fluids. Patient to take medication as instructed. Care plan and follow-up instructions provided. Patient questions asked and answered. Reports understanding and agreement to treatment plan. Patient instructed to follow-up with primary care provider in 3 - 5 days. ER precautions given. Patient instructed to return to ER immediately for any new or worsening of symptoms. Including but not limited to fever, abdominal pain , intractable vomiting. - Please note that this Emergency Department Report was dictated using [employer] elevator clerk technology software, occasionally this can lead to erroneous entry secondary to interpretation by the dictation equipment. Labs Test 07/15/17 19:09 Urine Color Yellow Urine Appearance Slightly cloudy Urine pH 5 (4.5-8.0) Urine Specific [place] 1.020 (1.005-1.035) Urine Protein 1+ (NEGATIVE) Urine Glucose (UA) Negative (NEGATIVE) Urine Ketones 1+ (NEGATIVE) Urine Occult Blood 1+ (NEGATIVE) Urine Nitrite Negative (NEGATIVE) Urine Bilirubin Negative (NEGATIVE) Urine Urobilinogen 1 MG/DL (0.0-1.0) Urine Leukocyte Esterase 1+ (NEGATIVE) Urine RBC 0-2 /HPF (0 - 2) Urine WBC 0-2 /HPF (0 - 2) Urine Squamous Epithelial Cells Moderate /LPF (NONE/OCC) Urine Bacteria Few /HPF (NONE) Urine Mucus Few /LPF (NONE/OCC) Urine HCG, Qualitative Negative (NEGATIVE) Last Vital Signs Date Time Temp Pulse Resp B/P (MAP) Pulse Ox O2 Delivery O2 Flow Rate FiO2 07/15/17 18:47 98.1 82 16 153/93 96 Room Air 98.1 Disposition: HOME, SELF-CARE Condition: Stable Referrals: [facility],REFERRING (PCP) Patient Instructions: Bacterial Vaginosis, [id number] Additional Instructions: Followup with primary care provider and followup with . Drink plenty of fluids. Patient questions asked and answered. ER precautions given, patient instructed to return to ER immediately for any new or worsening of symptoms. Alessandro Elizalde July 15, 2017 20:08
[2017-07-15 20:18] VITALS: BP 114/88
== END 2017-07-15 20:18 | disposition home or self-care (01) ==
LOC: EMR 19:37
DX: N89.8 Other specified noninflammatory disorders of vagina (principal); Z87.440 Personal history of urinary (tract) infections; Z88.2 Allergy status to sulfonamides; Z88.0 Allergy status to penicillin; Z88.8 Allergy status to other drugs, medicaments and biological substances
CPT/HCPCS: 81003; 81025; 99283

== ENCOUNTER 2017-10-13 07:50 | Emergency (ER) | payer OTHER ==
[~2017-10-13] VITALS: Ht 165.1 cm; Wt 77.1 kg
[2017-10-13 08:07] VITALS: BP 162/98
--- NOTE | 2017-10-13 08:43 | Emergency Room Report ---
History of Present Illness General Chief Complaint: Hypertension Source: Patient, Medical Record Present Illness HPI This patient is here requesting medication for htn. She does not have any specific complaint. No trauma, no fever, no shortness of breath, no chest pain, no nausea, no vomiting, no diarrhea, no abdominal pain, no syncope, LOC, dizziness, lightheadedness, headache. Allergies: Coded Allergies: LITHIUM (Unverified Allergy, Unknown, 06/13/14) PALIPERIDONE (Verified Allergy, Unknown, 10/13/17) PENICILLINS (Verified Allergy, Unknown, 02/27/17) Swelling and Seizures PREDNISONE (Verified Allergy, Unknown, 12/27/13) RISPERIDONE (Verified Allergy, Unknown, 10/13/17) SULFA (SULFONAMIDE ANTIBIOTICS) (Unverified Allergy, Unknown, 06/13/14) Patient History Last Menstrual Period: 10/11/2017 Nursing Documentation-[facility] Past Medical History: No History, Except For Hx Cardiac Problems: No - tonsillectomy Hx Hypertension: Yes Hx Pacemaker: No Hx Asthma: No Hx COPD: No Hx Diabetes: No Hx Cancer: No Hx Dialysis: No History Of Psychiatric Problem: No Hx Neurological Problems: No Hx Cerebrovascular Accident: No Hx Seizures: No Review of Systems Constitutional: Denies: fever Eye: Denies: acuity changes Respiratory: Denies: cough, shortness of breath Cardiovascular: Denies: chest pain Gastrointestinal: Denies: nausea, vomiting Skin: Denies: rash Neurological: Denies: headache All Other Systems: negative except mentioned in HPI Physical Exam Vital Signs Date Time Temp Pulse Resp B/P (MAP) Pulse Ox O2 Delivery O2 Flow Rate FiO2 10/13/17 08:00 98.2 89 14 162/98 96 Room Air 98.2 Sp02 EP Interpretation: reviewed, normal General Appearance: well appearing, no apparent distress Head: normocephalic, atraumatic ENT: hearing grossly normal, normal voice Neck: full range of motion, supple Respiratory: no respiratory distress, speaking full sentences Musculoskeletal: no calf tenderness Neurologic: alert, normal gait Psychiatric: other - labile mood Skin: no rash Medical Decision Making Diagnostic Impression: Primary Impression: Hypertension ER Course BP 166/88. Ambulatory, comfortable. No cp/headache. Pt. is frustrated/ belligerent at not getting the rx. she wants. She has a PMD appt. in three weeks. Other facility already turned her down to write addl. script and advised to wait for PMD. Return if new or worse symptoms. See your own doctor as scheduled. EDs do NOT diagnose nor manage incidental, non-emergent or chronic findings. Emergency departments do not prescribe medications for chronic conditions. Emergency departments do not prescribe narcotics for chronic conditions. You need to see a primary physician. Look on your Medical card for the doctor/ clinic name and/or phone number to find one. Here are some other options: Brendan Abdirahman [facility], [facility], [facility], [place], [facility], [facility]. I understand you have a [facility] appt. in three weeks. Your blood pressure was elevated >120/80 but appears stable without evidence of hypertensive emergency or urgency. You have been informed that untreated high blood pressure will cause serious medical problems. You must manage this as an outpatient with your primary doctor and you told me you have a [facility] appt. in three weeks. Last Vital Signs Date Time Temp Pulse Resp B/P (MAP) Pulse Ox O2 Delivery O2 Flow Rate FiO2 10/13/17 08:07 98.2 14 162/98 96 Room Air 98.2 10/13/17 08:07 89 Status: unchanged Disposition: HOME, SELF-CARE Condition: Stable Referrals: [facility]ERR[facility] (PCP) Patient Instructions: Hypertension, [id number] Sae Carpenter M.D. Oct 13, 2017 08:43
[2017-10-13 08:47] VITALS: BP 182/108
== END 2017-10-13 08:50 | disposition home or self-care (01) ==
LOC: EMR 08:15
DX: I10 Essential (primary) hypertension (principal); Z88.0 Allergy status to penicillin; Z88.2 Allergy status to sulfonamides; Z88.8 Allergy status to other drugs, medicaments and biological substances
CPT/HCPCS: 99283

== ENCOUNTER 2018-03-11 17:08 | Emergency (ER) | payer OTHER ==
[~2018-03-11] VITALS: Ht 165.1 cm; Wt 81.6 kg
[2018-03-11 17:25] VITALS: BP_SYST 155; BP_SYST 207; BP_DIAS 87; BP_DIAS 97
--- NOTE | 2018-03-11 17:25 | NUR ---
ED Nurse Note: pt came to ED from home with neice c/o HTN and wanting a new prescription for HTN. pt has history of bipolar and schizphorenia. triage BP 207/55
--- NOTE | 2018-03-11 17:49 | Emergency Room Report ---
History of Present Illness General Chief Complaint: Hypertension Source: Family Member, Medical Record (Eneida Barcenas) Present Illness HPI 47-year-old female presents to the emergency department complaining of need for medication refill. Patient reports that she is not taken her high blood pressure medication for over one week. Patient states that she was told her blood pressure was systolic 197 and that she needed to go to the ER. Patient states that during triage was 207/94. Denies headache, dizziness, nausea, vomiting, abdominal pain, syncope or visual changes. Patient denies floaters or flashing lights. Denies chest pain, shortness of breath or dyspnea. he denies pain at this time. (Eneida Barcenas) Allergies: Coded Allergies: LITHIUM (Unverified Allergy, Unknown, 06/13/14) PALIPERIDONE (Verified Allergy, Unknown, 10/13/17) PENICILLINS (Verified Allergy, Unknown, 02/27/17) Swelling and Seizures PREDNISONE (Verified Allergy, Unknown, 12/27/13) RISPERIDONE (Verified Allergy, Unknown, 10/13/17) SULFA (SULFONAMIDE ANTIBIOTICS) (Unverified Allergy, Unknown, 06/13/14) Patient History Past Medical History: see triage record, HTN, psych hx - Schizophrenia and bipolar Past Surgical History: none Pertinent Family History: none Last Menstrual Period: unknown Now: No Reviewed Nursing Documentation: PMH: Agreed; PSxH: Agreed (Eneida Barcenas) Nursing Documentation-PMH Hx Cardiac Problems: No - tonsillectomy Hx Hypertension: Yes Hx Pacemaker: No Hx Asthma: No Hx COPD: No Hx Diabetes: No Hx Cancer: No Hx Dialysis: No History Of Psychiatric Problem: Yes Hx Neurological Problems: Yes Hx Cerebrovascular Accident: No Hx Seizures: No (Eneida Barcenas) Review of Systems All Other Systems: negative except mentioned in HPI (Eneida Barcenas) Physical Exam Vital Signs Date Time Temp Pulse Resp B/P (MAP) Pulse Ox O2 Delivery O2 Flow Rate FiO2 03/11/18 17:16 97.9 92 15 207/94 98 Room Air Sp02 EP Interpretation: reviewed, normal General Appearance: no apparent distress, alert, GCS 15, non-toxic Head: normocephalic, atraumatic Eyes: bilateral eye normal inspection, bilateral eye PERRL, bilateral eye other - no photophobia ENT: hearing grossly normal, normal voice Neck: full range of motion Respiratory: lungs clear, normal breath sounds, speaking full sentences Cardiovascular #1: regular rate, rhythm, no edema Musculoskeletal: back normal, gait/station normal, normal range of motion, non- tender Neurologic: alert, oriented x3, responsive, motor strength/tone normal, sensory intact, normal gait, speech normal, grossly normal Psychiatric: judgement/insight normal Skin: normal color, no rash, warm/dry, well hydrated (Eneida Barcenas) Medical Decision Making PA Attestation Dr. Oakley is my supervising Physician whom patient management has been discussed with. (Eneida Barcenas) Diagnostic Impression: Primary Impression: Elevated blood pressure reading Additional Impression: Medication refill ER Course 47-year-old female presents to the emergency department complaining of need for medication refill. Patient reports that she is not taken her high blood pressure medication for over one week. Patient states that she was told her blood pressure was systolic 197 and that she needed to go to the ER. Patient states that during triage was 207/94. Denies headache, dizziness, nausea, vomiting, abdominal pain, syncope or visual changes. Patient denies floaters or flashing lights. Denies chest pain, shortness of breath or dyspnea. he denies pain at this time. Ddx considered but are not limited to: HTN Urgency or Emergency, renal failure , drug seeking, OD, urgent need for medication refill request, non -urgent medication refill request just to name a few. Vital signs: are WNL, pt. is afebrile H&PE are most consistent with non- urgent need for medication refill. Pt. does not have evidence to suggest high probability of danger to self or others. pt. is Alert, Oriented, and able to make decisions. ORDERS: none required at this time, the diagnosis is clinical ED INTERVENTIONS: --Amlodipine PO -Patient is given multiple resources for nonurgent psychiatric medication management such as [facility] mental health urgent care. Discussed with patient that this is a medication that is not normally prescribed by an emergency department and therefore medication refill and management needs to be performed by an appropriate provider. DISCHARGE: At this time pt. is stable for d/c to home. Will provide printed patient care instructions, and any necessary prescriptions. Care plan and follow up instructions have been discussed with the patient prior to discharge. (Eneida Barcenas) Last Vital Signs Date Time Temp Pulse Resp B/P (MAP) Pulse Ox O2 Delivery O2 Flow Rate FiO2 03/11/18 17:16 97.9 92 15 207/94 98 Room Air (Eneida Barcenas) Last Vital Signs Date Time Temp Pulse Resp B/P (MAP) Pulse Ox O2 Delivery O2 Flow Rate FiO2 03/11/18 18:02 97.9 92 15 155/87 98 Room Air (Karthikeyan Oakley MD) Disposition: HOME, SELF-CARE Condition: Stable Scripts Amlodipine Besylate* (AMLODIPINE BESYLATE*) 5 Mg Tablet 5 MG ORAL DAILY, #30 TAB Prov: Eneida Barcenas 03/11/18 Patient Instructions: Medicine Refill at the Emergency Department Additional Instructions: Take medications as directed. Follow up with a Primary Care Provider in 3-5 days, even if your symptoms have resolved. --Please review list of primary care clinics, if you do not already have a primary care provider Return sooner to ED if new symptoms occur, or current symptoms become worse. - Please note that this Emergency Department Report was dictated using [employer] steamer technology software, occasionally this can lead to erroneous entry secondary to interpretation by the dictation equipment. Eneida Barcenas Mar 11, 2018 17:49 Karthikeyan Oakley MD Mar 12, 2018 03:49
[2018-03-11] MEDS ORDERED: AMLODIPINE BESYL5 MG ORAL (17:51)
[2018-03-11 18:02] VITALS: BP 155/87
--- NOTE | 2018-03-11 18:02 | NUR ---
ED Nurse Note: pt was cleared for discharge by ann marie. prescription and discharge instruction explained. pt is aox 4, pt able to verbalize understanding. id band removed. pt able to walk with steady gait. pt left with all belongings.
== END 2018-03-11 18:10 | disposition home or self-care (01) ==
LOC: EMR 17:40
DX: I10 Essential (primary) hypertension (principal); Z76.0 Encounter for issue of repeat prescription
CPT/HCPCS: 99282

== ENCOUNTER 2018-08-01 05:56 | Emergency (ER) | payer OTHER ==
[~2018-08-01] VITALS: Ht 177.8 cm; Wt 83.9 kg
[~2018-08-01 05:56] MED LIST changes: +AMLODIPINE BESYL5 MG ORAL
[2018-08-01] MEDS ORDERED: RISPERDAL0.25 MG ORAL (06:00)
[2018-08-01 06:23] VITALS: BP 176/84
--- NOTE | 2018-08-01 06:32 | NUR ---
ED Nurse Note: Patient was BIBA from home due to suicidal ideations. Per patient she had this kind of problems before, but nevere hav plans for it. Patient states that she had suicidal ideation since yesterday evening, but never had plan. Patient appeared bizzarre, talkactive. AAO x4, VSS at this time, skin is dry, intact, will continue to monitor.
--- NOTE | 2018-08-01 06:32 | Emergency Room Report ---
History of Present Illness General Chief Complaint: Behavioral Complaint Source: Patient Present Illness HPI This is a 47-year-old female with psychiatric history for which she is to she presents with chief complaint of feeling suicidal. She says she lives in a garage but refused to tell me who belongs to. She claims her speech even though she does not pay rent. She called because she says she felt suicidal. This is a chronic issue for her. According to motorcycle police officer they have 16 contacts with her. She wanted to go see her. She has no particular plan. No homicidal thought. No hallucination. Denies any fever chills but denies any trauma. Said that she fell under increased stress. Denies any other complaint. Allergies: Coded Allergies: LITHIUM (Unverified Allergy, Unknown, 06/13/14) PALIPERIDONE (Verified Allergy, Unknown, 10/13/17) PENICILLINS (Verified Allergy, Unknown, 02/27/17) Swelling and Seizures PREDNISONE (Verified Allergy, Unknown, 12/27/13) RISPERIDONE (Verified Allergy, Unknown, 10/13/17) SULFA (SULFONAMIDE ANTIBIOTICS) (Unverified Allergy, Unknown, 06/13/14) Patient History Past Medical History: see triage record, old chart reviewed, psych hx Past Surgical History: none Family History: none Social History: tobacco use Now: No Immunizations: other Reviewed Nursing Documentation: PMH: Agreed; PSxH: Agreed Nursing Documentation-PMH Past Medical History: No History, Except For Hx Cardiac Problems: No - tonsillectomy Hx Hypertension: Yes Hx Pacemaker: No Hx Asthma: No Hx COPD: No Hx Diabetes: No Hx Cancer: No Hx Dialysis: No Hx Neurological Problems: Yes Hx Cerebrovascular Accident: No Hx Seizures: No Review of Systems ENT: Denies: sore throat Cardiovascular: Denies: chest pain, palpitations Gastrointestinal/Abdominal: Denies: nausea, vomiting, diarrhea Musculoskeletal: Denies: back problems Skin: Denies: rash Psychiatric: Reports: anxiety, suicidal/homicidal ideations Neurological: Denies: SHAW, seizures All Other Systems: negative except mentioned in HPI Physical Exam Vital Signs Date Time Temp Pulse Resp B/P (MAP) Pulse Ox O2 Delivery O2 Flow Rate FiO2 08/01/18 05:56 98.2 92 20 176/84 (114) 99 Room Air With high blood pressure Sp02 EP Interpretation: reviewed, normal General Appearance: alert/responsive, no apparent distress, non-toxic Head: normocephalic, atraumatic Eyes: PERRL, EOMI ENT: oropharynx normal Neck: supple/symm/no masses Respiratory: effort normal, no rhonchi, no wheezing Cardiovascular: no murmur, gallop, rub Gastrointestinal: non-tender, no mass, non-distended, no rebound/guarding, normal bowel sounds Musculoskeletal: gait & station normal Neurologic: oriented x3, sensory intact, motor strength/tone normal Skin: no rash, normal palpation Medical Decision Making Diagnostic Impression: Primary Impression: Hypertension Qualified Codes: I10 - Essential (primary) hypertension Additional Impression: Suicidal behavior Qualified Codes: R46.89 - Other symptoms and signs involving appearance and behavior ER Course Patient presents with vague suicidal ideation. This is a chronic issue for her. She has no particular plan. She states she felt better now. She said that she is taking her Risperdal and has enough of her Risperdal. She claimed that she does take blood pressure medication but her mom gave it to her. She says she goes to her mom and get her medication. I see no need to put her on a 5150. Will discharge home. This patient is a chronic risk of self injury due to poor impulse control, limited coping skills, and judgment intermittently impaired by intoxication. I believe that the available clinical evidence to suggest that these characteristics derived primarily from personality disorder and are likely very stable over time. Hospitalization would likely attenuate risk of self-harm only during mcfp period, without lasting risk reduction. Serious self-harm , while possible, would likely be inadvertent, and because of impulsivity, and foreseeable. For these reasons, I do not believe hospitalization would provide meaningful reduction in risk of self-harm. Last Vital Signs Date Time Temp Pulse Resp B/P (MAP) Pulse Ox O2 Delivery O2 Flow Rate FiO2 08/01/18 05:56 98.2 92 20 176/84 (114) 99 Room Air Status: improved Disposition: HOME, SELF-CARE Condition: Stable Referrals: [facility]ERR[facility] (PCP) Patient Instructions: Self-Destructive Behavior Additional Instructions: Follow up with your therapist in a week. Take your blood pressure medication. Return if worse. Km Garibay MD Aug 01, 2018 06:32
--- NOTE | 2018-08-01 06:38 | NUR ---
ED Nurse Note: After careful evaluation by LAPIvonne and ER MD patient was not placed on a 5150 hold.
[2018-08-01 06:44] VITALS: BP 156/89
--- NOTE | 2018-08-01 06:46 | NUR ---
ED Nurse Note: Pt cleared by health care Provider for discharge. DC instructions/prescription was given and explained to pt and verbalized understanding of teachings. All medical deviecs such as ID band removed. Pt is AAO x4, ambulatory and left with all personal belongings.
== END 2018-08-01 06:47 | disposition home or self-care (01) ==
LOC: EDUNIT# 05:56 → EDBD 05:56 → EMR 06:08
DX: R45.851 Suicidal ideations (principal); I10 Essential (primary) hypertension; Z88.2 Allergy status to sulfonamides; Z88.8 Allergy status to other drugs, medicaments and biological substances; Z88.0 Allergy status to penicillin; R45.850 Homicidal ideations; F41.9 Anxiety disorder, unspecified
CPT/HCPCS: 99282

== ENCOUNTER 2018-08-22 12:11 | Emergency (ER) | payer OTHER ==
[~2018-08-22] VITALS: Ht 165.1 cm; Wt 72.6 kg
[~2018-08-22 12:11] MED LIST changes: +RISPERDAL0.25 MG ORAL
[2018-08-22 13:21] LABS: APPEARANCE,URINE SLIGHTLY CLOUDY; BILIRUBIN, URINE NEGATIVE (NEGATIVE); GLUCOSE, URINE (UA) NEGATIVE (NEGATIVE); KETONES,URINE 1+ (NEGATIVE); LEUKOCYTE ESTERASE ,URINE 1+ (NEGATIVE); NITRITE,URINE NEGATIVE (NEGATIVE); PH,URINE 6 (4.5-8.0); PROTEIN,URINE 1+ (NEGATIVE); UROBILINOGEN,URINE 1 MG/DL (0.0-1.0)
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
[2018-08-22 13:23] LABS: COLOR,URINE YELLOW
[2018-08-22] MEDS ORDERED: METRONIDAZOLE500 MG ORAL (13:52)
[2018-08-22] MEDS ORDERED: NITROFURANTOIN100 M2 ORAL (13:54)
[2018-08-22 14:00] VITALS: BP 131/78
[2018-08-22] MEDS ORDERED: Fluconazole 100mg tab ORAL ONE (14:00)
== END 2018-08-22 14:00 | disposition home or self-care (01) ==
LOC: EMR 13:35
DX: A59.9 Trichomoniasis, unspecified (principal); N39.0 Urinary tract infection, site not specified; N76.0 Acute vaginitis; Z88.0 Allergy status to penicillin; Z88.8 Allergy status to other drugs, medicaments and biological substances; Z88.2 Allergy status to sulfonamides; I10 Essential (primary) hypertension
CPT/HCPCS: 81003; 81025; 87210; 99283

== ENCOUNTER 2018-10-19 09:00 | Emergency (ER) | payer OTHER ==
[~2018-10-19] VITALS: Ht 165.1 cm; Wt 72.6 kg
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
[2018-10-19] MEDS ORDERED: MULTIVITAMINS1 EAC2 ORAL (09:37)
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
[2018-10-19 09:41] VITALS: BP 131/76
[2018-10-19 09:55] LABS: APPEARANCE,URINE CLEAR; BILIRUBIN, URINE NEGATIVE (NEGATIVE); GLUCOSE, URINE (UA) NEGATIVE (NEGATIVE); KETONES,URINE NEGATIVE (NEGATIVE); LEUKOCYTE ESTERASE ,URINE 1+ (NEGATIVE); NITRITE,URINE NEGATIVE (NEGATIVE); PH,URINE 5 (4.5-8.0); PROTEIN,URINE 1+ (NEGATIVE); UROBILINOGEN,URINE NORMAL MG/DL (0.0-1.0)
[2018-10-19 09:56] LABS: COLOR,URINE YELLOW
[2018-10-19] MEDS ORDERED: METRONIDAZOLE500 MG ORAL (10:16)
[2018-10-19] MEDS ORDERED: TYLENOL325 MG ORAL (10:16)
[2018-10-19 10:20] VITALS: BP 131/76
--- NOTE | 2018-10-19 10:50 | NUR ---
ED Nurse Note: pt d/c'd from [facility] yesterday . overhead crane inspector called and confirmed. [employer] called and canceled.
== END 2018-10-19 10:20 | disposition home or self-care (01) ==
LOC: EMR 09:12
DX: N76.0 Acute vaginitis (principal); F22 Delusional disorders; F25.9 Schizoaffective disorder, unspecified; I10 Essential (primary) hypertension; Z88.2 Allergy status to sulfonamides; Z88.0 Allergy status to penicillin; Z88.8 Allergy status to other drugs, medicaments and biological substances
CPT/HCPCS: 80307; 81003; 81025; 87210; 99283

== ENCOUNTER 2019-01-11 08:21 | Emergency (ER) | payer OTHER ==
[~2019-01-11] VITALS: Ht 165.1 cm; Wt 79.4 kg
[~2019-01-11 08:21] MED LIST changes: +MULTIVITAMINS1 EAC2 ORAL; +TYLENOL325 MG ORAL
--- NOTE | 2019-01-11 08:40 | NUR ---
ED Nurse Note: Patient brought in by self walked into ER from home d/t c/o congestion for 3 days. Patient aao x4 and ambulatory. Patient changed into gown and placed on court recording monitor. No acute distress noted. Addendum: 01/11/19 at 0847 by IOROPEL ED Nurse Note: Patient brought in by self walked into ER from home d/t c/o congestion for 3 days. Patient c/o headache 09/30 and high blood pressure noted in triage. Patient aao x4 and ambulatory. Patient changed into gown and placed on court recording monitor. No acute distress noted.
[2019-01-11 08:47] VITALS: BP 196/95
--- NOTE | 2019-01-11 08:53 | NUR ---
ED Nurse Note: MD at bedside
--- NOTE | 2019-01-11 08:58 | Emergency Room Report ---
History of Present Illness General Chief Complaint: Upper Respiratory Illness Source: Patient Present Illness HPI Patient is a 48-year-old female presents after increased cough with yellow sputum. Patient states this been going on for approximately 3 weeks. She denies any fever. She reports having a mild sore throat. She denies any chest discomfort. Denies any shortness of breath. She reports having prior history of nasal polyps and chronic sinusitis in the past. She has penicillin allergy. Denies any facial pain. Allergies: Coded Allergies: CITALOPRAM (Verified Allergy, Unknown, 10/19/18) LITHIUM (Unverified Allergy, Unknown, 06/13/14) PALIPERIDONE (Verified Allergy, Unknown, 10/13/17) PENICILLINS (Verified Allergy, Unknown, 02/27/17) Swelling and Seizures PREDNISONE (Verified Allergy, Unknown, 12/27/13) RISPERIDONE (Verified Allergy, Unknown, 10/13/17) SULFA (SULFONAMIDE ANTIBIOTICS) (Unverified Allergy, Unknown, 06/13/14) Patient History Past Medical History: see triage record Last Menstrual Period: 12/2018 Now: No Reviewed Nursing Documentation: PMH: Agreed; PSxH: Agreed Nursing Documentation-PMH Past Medical History: No History, Except For Hx Cardiac Problems: No - tonsillectomy Hx Hypertension: Yes Hx Pacemaker: No Hx Asthma: No Hx COPD: No Hx Diabetes: No Hx Cancer: No Hx Dialysis: No Hx Neurological Problems: Yes Hx Cerebrovascular Accident: No Hx Seizures: No Review of Systems All Other Systems: negative except mentioned in HPI Physical Exam Vital Signs Date Time Temp Pulse Resp B/P (MAP) Pulse Ox O2 Delivery O2 Flow Rate FiO2 01/11/19 08:32 98.6 88 20 186/120 (142) 98 Room Air Sp02 EP Interpretation: reviewed, normal General Appearance: normal inspection, well appearing, no apparent distress, alert, GCS 15, Chronically Ill Head: atraumatic ENT: normal ENT inspection, hearing grossly normal, normal voice Neck: normal inspection, full range of motion, supple, no bony tend Respiratory: normal inspection, lungs clear, normal breath sounds, no respiratory distress, no retraction, no wheezing Cardiovascular #1: regular rate, rhythm, no edema Gastrointestinal: normal inspection, normal bowel sounds, non tender, soft, no guarding, no hernia Genitourinary: no CVA tenderness Musculoskeletal: normal inspection, back normal, normal range of motion Neurologic: normal inspection, alert, oriented x3, responsive, piecer III-XII nml as tested, speech normal Psychiatric: normal inspection, judgement/insight normal, mood/affect normal, other - flat affect Skin: no rash Medical Decision Making Diagnostic Impression: Primary Impression: Chronic sinusitis ER Course Patient presented for increased productive cough. Differential diagnosis include was not limited to sinusitis, pneumonia, viral respiratory infection among others. Patient has a benign exam and does not appear to require any imaging or laboratory testing at this time. Patient appears to have some chronic cough which is partially related to her smoking. She is noted to have change in sputum which suggested there is some acute bacterial infection. Patient was noted to have symptoms for several weeks and patient's prior history of chronic sinusitis will be started on antibiotics. Patient was advised to follow-up with her primary care physician for recheck. She is to return if worse.Patient was advised to discontinue antibiotics if she develops a rash or any other problems. Last Vital Signs Date Time Temp Pulse Resp B/P (MAP) Pulse Ox O2 Delivery O2 Flow Rate FiO2 01/11/19 08:47 88 20 Room Air 01/11/19 08:32 98.6 186/120 (142) 98 Status: improved Disposition: HOME, SELF-CARE Condition: Stable Ignacio Aguilar MD Jan 11, 2019 08:58
[2019-01-11] MEDS ORDERED: DOXYCYCLINE MO100 MG ORAL (08:59)
[2019-01-11] MEDS ORDERED: ADULT WAL-100 MG/5 M ORAL (08:59)
[2019-01-11 09:12] VITALS: BP 140/85
--- NOTE | 2019-01-11 09:12 | NUR ---
ER DISCHARGE NOTE: Patient is cleared to be discharged per ERMD, pt is aox4, on room air, with stable vital signs. pt was given dc and prescription instructions, pt was able to verbalize understanding, pt id band and medical devices removed. pt is able to ambulate with steady gait. pt took all belongings. patient stable upon discharge.
== END 2019-01-11 09:15 | disposition home or self-care (01) ==
LOC: EMR 09:00
DX: J32.8 Other chronic sinusitis (principal); I10 Essential (primary) hypertension; Z88.0 Allergy status to penicillin; Z88.2 Allergy status to sulfonamides; Z88.8 Allergy status to other drugs, medicaments and biological substances
CPT/HCPCS: 99282

== ENCOUNTER 2019-02-06 11:32 | Emergency (ER) | payer OTHER ==
[~2019-02-06] VITALS: Ht 167.6 cm; Wt 96.2 kg
[~2019-02-06 11:32] MED LIST changes: +ADULT WAL-100 MG/5 M ORAL; +DOXYCYCLINE MO100 MG ORAL
[2019-02-06 11:43] VITALS: BP 153/78
[2019-02-06] MEDS ORDERED: Fluconazole 150mg tab ORAL ONE (12:15)
--- NOTE | 2019-02-06 12:30 | Emergency Room Report ---
History of Present Illness General Chief Complaint: Female Urogenital Problems Source: Patient Present Illness HPI 48-year-old female presents with urinary frequency for the past 2 weeks. She reports this started right after she started taking Abilify. She denies any dysuria, hematuria, flank pain, fever. Patient also reports 1 week of vaginal itching and whitish discharge. Denies any vaginal pain or abdominal pain. She did recently finish antibiotics that she was taking for sinus infection. She reports mild back pain last week but none currently. Denies saddle anesthesia or incontinence. No other complaints at this time. Allergies: Coded Allergies: CITALOPRAM (Verified Allergy, Unknown, 10/19/18) LITHIUM (Unverified Allergy, Unknown, 06/13/14) PALIPERIDONE (Verified Allergy, Unknown, 10/13/17) PENICILLINS (Verified Allergy, Unknown, 02/27/17) Swelling and Seizures PREDNISONE (Verified Allergy, Unknown, 12/27/13) RISPERIDONE (Verified Allergy, Unknown, 10/13/17) SULFA (SULFONAMIDE ANTIBIOTICS) (Unverified Allergy, Unknown, 06/13/14) Patient History Past Medical History: see triage record Last Menstrual Period: 01/23/2019 Reviewed Nursing Documentation: PMH: Agreed; PSxH: Agreed Nursing Documentation-PMH Past Medical History: No History, Except For Hx Cardiac Problems: No - tonsillectomy Hx Hypertension: No Hx Pacemaker: No Hx Asthma: No Hx COPD: No Hx Diabetes: No Hx Cancer: No Hx Dialysis: No History Of Psychiatric Problem: No Hx Neurological Problems: Yes Hx Cerebrovascular Accident: No Hx Seizures: No Review of Systems All Other Systems: negative except mentioned in HPI Physical Exam Vital Signs Date Time Temp Pulse Resp B/P (MAP) Pulse Ox O2 Delivery O2 Flow Rate FiO2 02/06/19 11:43 97.9 86 17 153/78 (103) 97 Room Air Sp02 EP Interpretation: reviewed, normal General Appearance: no apparent distress, alert, GCS 15, non-toxic Head: normocephalic, atraumatic ENT: hearing grossly normal, normal voice Neck: full range of motion, supple/symm/no masses Respiratory: lungs clear, normal breath sounds, speaking full sentences Cardiovascular #1: regular rate, rhythm Gastrointestinal: normal bowel sounds, non tender, soft, non-distended, no guarding, no rebound Genitourinary: normal inspection, no CVA tenderness, no vertebral tenderness Musculoskeletal: back normal, normal range of motion, gait/station normal, non- tender, other - no midline tenderness Neurologic: alert, motor strength/tone normal, oriented x3, sensory intact, responsive, speech normal, other - no saddle anesthesia Psychiatric: judgement/insight normal, mood/affect normal Skin: no rash, normal color, warm/dry Lymphatic: no adenopathy Medical Decision Making PA Attestation Dr. Hyman is my supervising physician whom patient management and care has been discussed with. Diagnostic Impression: Primary Impression: Vaginitis Additional Impression: UTI (lower urinary tract infection) ER Course Pt. presents to the ED c/o urinary frequency and vaginal itching and discharge. No flank pain, fever, dysuria. Ddx considered but are not limited to vaginitis, UTI, pyelonephritis. Vital signs: are WNL, pt. is afebrile H&PE are most consistent with vaginal candidiasis and possible UTI. ORDERS: UA shows no evidence of UTI, HCG negative ED INTERVENTIONS: Given 150 mg PO Diflucan for candidal infection DISCHARGE: At this time pt. is stable for d/c to home with outpatient follow up. Will provide printed patient care instructions, no necessary prescriptions at this time. Care plan and follow up instructions have been discussed with the patient prior to discharge. Laboratory Tests Test 02/06/19 11:49 Urine Color Pale yellow Urine Appearance Clear Urine pH 6 (4.5-8.0) Urine Specific [place] 1.015 (1.005-1.035) Urine Protein Negative (NEGATIVE) Urine Glucose (UA) Negative (NEGATIVE) Urine Ketones Negative (NEGATIVE) Urine Blood Negative (NEGATIVE) Urine Nitrite Negative (NEGATIVE) Urine Bilirubin Negative (NEGATIVE) Urine Urobilinogen Normal MG/DL (0.0-1.0) Urine Leukocyte Esterase Negative (NEGATIVE) Urine HCG, Qualitative Negative (NEGATIVE) Last Vital Signs Date Time Temp Pulse Resp B/P (MAP) Pulse Ox O2 Delivery O2 Flow Rate FiO2 02/06/19 11:43 97.9 17 153/78 97 Room Air 02/06/19 11:43 86 Disposition: HOME, SELF-CARE Condition: Stable Daphney Arellano Feb 06, 2019 12:29
[2019-02-06 12:43] LABS: APPEARANCE,URINE CLEAR; BILIRUBIN, URINE NEGATIVE (NEGATIVE); COLOR,URINE PALE YELLOW; GLUCOSE, URINE (UA) NEGATIVE (NEGATIVE); KETONES,URINE NEGATIVE (NEGATIVE); LEUKOCYTE ESTERASE ,URINE NEGATIVE (NEGATIVE); NITRITE,URINE NEGATIVE (NEGATIVE); PH,URINE 6 (4.5-8.0); PROTEIN,URINE NEGATIVE (NEGATIVE); UROBILINOGEN,URINE NORMAL MG/DL (0.0-1.0)
[2019-02-06 13:08] VITALS: BP 146/85
== END 2019-02-06 13:10 | disposition home or self-care (01) ==
LOC: EMR 12:00
DX: N76.0 Acute vaginitis (principal); N39.0 Urinary tract infection, site not specified; Z88.2 Allergy status to sulfonamides; Z88.0 Allergy status to penicillin; Z88.8 Allergy status to other drugs, medicaments and biological substances
CPT/HCPCS: 81003; 81025; Z7502; 99283

== ENCOUNTER 2019-05-11 09:20 | Emergency (ER) | payer OTHER ==
[~2019-05-11] VITALS: Ht 165.1 cm; Wt 81.6 kg
[~2019-05-11 09:20] MED LIST changes: +FAMOTIDINE20 MG ORAL; +GUAIFENESIN DM118 M1 ORAL; +TESSALON PERLE100 MG ORAL; +ZITHROMAX250 MG ORAL; +ZYRTEC-D TABLE1 EACH ORAL
--- NOTE | 2019-05-11 09:32 | NUR ---
ED Nurse Note: Pt walked in from home d/t high blood pressure at home. Pt reports palpitations when lying down. Pt denies CP/n/v/d. Respirations even and unlabored on room air. Vitals stable as documented. Addendum: 05/11/19 at 0935 by BDUTTON BP 170/91 @ triage
[2019-05-11 09:33] VITALS: BP 170/91
[2019-05-11] MEDS ORDERED: NORVASC10 MG ORAL (10:13)
[2019-05-11 10:18] VITALS: BP 161/92
--- NOTE | 2019-05-11 10:18 | NUR ---
ER DISCHARGE NOTE: Patient is cleared to be discharged per ERMD, pt is aox4, on room air, with stable vital signs as documented. pt was given dc and prescription instructions and was able to verbalize understanding, pt id band removed. pt is able to ambulate with steady gait. pt took all belongings.
--- NOTE | 2019-05-11 11:27 | Emergency Room Report ---
History of Present Illness General Chief Complaint: Hypertension Source: Patient Present Illness HPI 48-year-old female presents ED for evaluation of hypertension. BP in triage 170. States that she ran out of her BP meds. Takes Norvasc. Denies chest pain. States that when she was laying flat earlier today she felt her heart was racing. Denies any symptoms at this time. States she has a mild headache. Dull, frontal, 7 out of 10, nonradiating. States she typically gets this headache when her BP is high. Denies neck stiffness. Denies photophobia or blurry vision. Denies nausea or vomiting. Denies cough or congestion. Denies fevers or chills. No other aggravating relieving factors. Denies any other associated symptoms COVID-19 risk:Contact w/high r: No COVID-19 risk:Travel to affect: No Has patient experienced bledsoe: No Allergies: Coded Allergies: CITALOPRAM (Verified Allergy, Unknown, 10/19/18) LITHIUM (Unverified Allergy, Unknown, 06/13/14) PALIPERIDONE (Verified Allergy, Unknown, 10/13/17) PENICILLINS (Verified Allergy, Unknown, 02/27/17) Swelling and Seizures PREDNISONE (Verified Allergy, Unknown, 12/27/13) RISPERIDONE (Verified Allergy, Unknown, 10/13/17) SULFA (SULFONAMIDE ANTIBIOTICS) (Unverified Allergy, Unknown, 06/13/14) Patient History Past Medical History: none Past Surgical History: none Pertinent Family History: none Social History: Denies: smoking, alcohol use, drug use Last Menstrual Period: 05/08/19 Now: No Immunizations: UTD Reviewed Nursing Documentation: PMH: Agreed; PSxH: Agreed Nursing Documentation-PMH Past Medical History: No History, Except For Hx Cardiac Problems: No - tonsillectomy Hx Hypertension: No Hx Pacemaker: No Hx Asthma: No Hx COPD: No Hx Diabetes: No Hx Cancer: No Hx Dialysis: No Hx Neurological Problems: Yes Hx Cerebrovascular Accident: No Hx Seizures: No Review of Systems All Other Systems: negative except mentioned in HPI Physical Exam Vital Signs Date Time Temp Pulse Resp B/P (MAP) Pulse Ox O2 Delivery O2 Flow Rate FiO2 05/11/19 09:23 98.1 89 17 170/91 (117) 97 Room Air Sp02 EP Interpretation: reviewed, normal General Appearance: no apparent distress, alert, GCS 15, non-toxic Head: normocephalic, atraumatic Eyes: bilateral eye normal inspection, bilateral eye PERRL ENT: hearing grossly normal, normal pharynx, no angioedema, normal voice Neck: full range of motion, supple/symm/no masses Respiratory: chest non-tender, lungs clear, normal breath sounds, speaking full sentences Cardiovascular #1: regular rate, rhythm, no edema Cardiovascular #2: 2+ carotid (R), 2+ carotid (L), 2+ radial (R), 2+ radial (L) , 2+ dorsalis pedis (R), 2+ dorsalis pedis (L) Gastrointestinal: normal bowel sounds, non tender, soft, non-distended, no guarding, no rebound Rectal: deferred Genitourinary: normal inspection, no CVA tenderness Musculoskeletal: back normal, normal range of motion, gait/station normal, non- tender Neurologic: alert, motor strength/tone normal, oriented x3, sensory intact, responsive, speech normal Psychiatric: judgement/insight normal, memory normal, mood/affect normal, no suicidal/homicidal ideation Reflexes: 3+ bicep (R), 3+ bicep (L), 3+ tricep (R), 3+ tricep (L), 3+ knee (R) , 3+ knee (L) Lymphatic: no adenopathy Medical Decision Making Diagnostic Impression: Primary Impression: Hypertension Qualified Codes: I10 - Essential (primary) hypertension ER Course Hospital Course 48-year-old female presents ED complaining of elevated BP, c/o palpitations and headache Differential diagnoses include: hypertensive urgency, hypertensive emergency, arrythmia, OR/ACS Clinical course Patient placed on stretcher. After initial history exam reveals female in no acute distress. No focal neurological deficits. No nuchal rigidity. Remainder of exam unremarkable. I ordedred EKG, Norvasc EKG - NSR no acute ischemic changes interpreted by me Patient given Norvasc. On reassessment patient states she feels better. BP slowly improving. I discussed findings with patient will discharge to home. In light of current coronavirus pandemic encourage self-isolation. Patient agrees with plan. Safe for discharge for close outpatient follow-up. I will provide referrals I. I feel this is a highly complex case requiring extensive working including EKG/Rhythm strip, Xray/CT/US, Blood/urine lab work, repeat exams while in ED, and administration of strong opiates/narcotics for pain control, admission to hospital or close patient follow up. Diagnosis - hypertension Stable and discharged to home with Rx Norvasc. Instructed to followup with PMD. Return to ED if symptoms recur or worsen EKG Diagnostic Results Rate: normal Rhythm: NSR ST Segments: no acute changes ASA given to the pt in ED: No Rhythm Strip Diag. Results EP Interpretation: yes Rhythm: NSR, no PVC's, no ectopy Last Vital Signs Date Time Temp Pulse Resp B/P (MAP) Pulse Ox O2 Delivery O2 Flow Rate FiO2 05/11/19 10:18 97.8 84 17 161/92 96 Room Air Status: improved Disposition: HOME, SELF-CARE Condition: Stable Scripts Amlodipine Besylate (Norvasc) 10 Mg Tablet 10 MG ORAL DAILY, #30 TAB Prov: Casa Caldera MD 05/11/19 Referrals: Sienna [facility] Patient Instructions: Hypertension, [id number] Additional Instructions: in light of current coronavirus pandemic, we encourage you to go home and self- isolate Casa Caldera MD May 11, 2019 11:27
== END 2019-05-11 10:18 | disposition home or self-care (01) ==
LOC: EMR 09:45
DX: I10 Essential (primary) hypertension (principal); Z88.0 Allergy status to penicillin; Z88.2 Allergy status to sulfonamides; Z88.8 Allergy status to other drugs, medicaments and biological substances
CPT/HCPCS: 93005; Z7502; 99282

== ENCOUNTER 2019-08-22 13:23 | Emergency (ER) | payer MEDICAID, OTHER ==
[~2019-08-22] VITALS: Ht 165.1 cm; Wt 85.7 kg
[~2019-08-22 13:23] MED LIST changes: +NORVASC10 MG ORAL
[2019-08-22 13:46] VITALS: BP 158/94
--- NOTE | 2019-08-22 13:47 | NUR ---
ED Nurse Note: Patient walked in from home c/o shelton/white discharge, vaginal itching, and pelvic pain x 3 days. Patient calm, cooperaticame, AAO x4, VSS at this time
[2019-08-22 13:54] LABS: APPEARANCE,URINE CLEAR; BILIRUBIN, URINE NEGATIVE (NEGATIVE); GLUCOSE, URINE (UA) NEGATIVE (NEGATIVE); KETONES,URINE NEGATIVE (NEGATIVE); LEUKOCYTE ESTERASE ,URINE 1+ (NEGATIVE); NITRITE,URINE NEGATIVE (NEGATIVE); PH,URINE 5 (4.5-8.0); PROTEIN,URINE NEGATIVE (NEGATIVE); UROBILINOGEN,URINE NORMAL MG/DL (0.0-1.0)
[2019-08-22 13:58] LABS: COLOR,URINE YELLOW
[2019-08-22] MEDS ORDERED: Fluconazole 150mg tab ORAL ONE (14:00)
[2019-08-22] MEDS ORDERED: Lidocaine 1% MPF 10mg/ml 5ml INJ ONE (14:00)
[2019-08-22] MEDS ORDERED: Azithromycin 250mg tab ORAL ONE (14:00)
--- NOTE | 2019-08-22 14:04 | Emergency Room Report ---
History of Present Illness General Chief Complaint: Female Urogenital Problems Source: Patient, Medical Record Present Illness HPI 48-year-old female with history of bacterial vaginosis and UTI here complaining of 3 days of urinary frequency and urgency and suprapubic pain. Also complains of a foul odor is mcgowan vaginal discharge. Does not know if her sexual partner is positive for any sexually transmitted diseases however wants to be treated for possible chlamydia and gonorrhea as well as bacterial vaginosis as patient has history of multiple stools. Denies any fever and chills, flank pain, nausea vomiting. Denies any pruritus in the vaginal area or ulceration. Sitting comfortably with stable vital signs. Reports her last menstrual period was 5 days ago and patient denies . Allergies: Coded Allergies: CITALOPRAM (Verified Allergy, Unknown, 10/19/18) LITHIUM (Unverified Allergy, Unknown, 06/13/14) PALIPERIDONE (Verified Allergy, Unknown, 10/13/17) PENICILLINS (Verified Allergy, Unknown, 02/27/17) Swelling and Seizures PREDNISONE (Verified Allergy, Unknown, 12/27/13) RISPERIDONE (Verified Allergy, Unknown, 10/13/17) SULFA (SULFONAMIDE ANTIBIOTICS) (Unverified Allergy, Unknown, 06/13/14) COVID-19 Screening Contact w/high risk pt: No Recent Travel to affected area: No Experienced COVID-19 symptoms?: No COVID-19 Testing performed SOLAR ELECTRIC PRACTITIONER: No Patient History Past Medical History: see triage record Past Surgical History: none Pertinent Family History: none Last Menstrual Period: 08/15 Now: No Immunizations: UTD Reviewed Nursing Documentation: PMH: Agreed; PSxH: Agreed Nursing Documentation-PMH Past Medical History: No History, Except For Hx Cardiac Problems: No - tonsillectomy Hx Hypertension: No Hx Pacemaker: No Hx Asthma: No Hx COPD: No Hx Diabetes: No Hx Cancer: No Hx Dialysis: No Hx Neurological Problems: Yes Hx Cerebrovascular Accident: No Hx Seizures: No Review of Systems All Other Systems: negative except mentioned in HPI Physical Exam Vital Signs Date Time Temp Pulse Resp B/P (MAP) Pulse Ox O2 Delivery O2 Flow Rate FiO2 08/22/19 13:33 98.8 91 20 158/94 (115) 96 Room Air Sp02 EP Interpretation: reviewed, normal General Appearance: no apparent distress, alert, GCS 15, non-toxic Head: normocephalic, atraumatic Eyes: bilateral eye normal inspection, bilateral eye PERRL ENT: hearing grossly normal, normal pharynx, no angioedema, normal voice Neck: full range of motion, supple/symm/no masses Respiratory: chest non-tender, lungs clear, normal breath sounds, speaking full sentences Cardiovascular #1: regular rate, rhythm, no edema Gastrointestinal: normal bowel sounds, non tender, soft, non-distended, no guarding, no rebound Genitourinary: no CVA tenderness Musculoskeletal: back normal Neurologic: alert, motor strength/tone normal, oriented x3, sensory intact, responsive, speech normal Psychiatric: judgement/insight normal, memory normal, mood/affect normal, no suicidal/homicidal ideation Skin: no rash Lymphatic: no adenopathy Medical Decision Making PA Attestation All diagnoses and treatment plans were reviewed and discussed with my supervising physician Dr. Hardwick Diagnostic Impression: Primary Impression: Vaginitis Additional Impression: UTI (lower urinary tract infection) ER Course 48-year-old female with history of bacterial vaginosis and UTI here complaining of 3 days of urinary frequency and urgency and suprapubic pain. Also complains of a foul odor is mcgowan vaginal discharge. Does not know if her sexual partner is positive for any sexually transmitted diseases however wants to be treated for possible chlamydia and gonorrhea as well as bacterial vaginosis as patient has history of multiple stools. Denies any fever and chills, flank pain, nausea vomiting. Denies any pruritus in the vaginal area or ulceration. Sitting comfortably with stable vital signs. Reports her last menstrual period was 5 days ago and patient denies . Ddx considered but are not limited to: UTI, pyelonephritis, urinary incontinence , prolapsed bladder, chlamydia, gonorrhea, bacterial vaginosis, yeast infection Vital signs: are WNL, pt. is afebrile H&PE are most consistent with: Vaginitis, UTI ORDERS: UA, urine cx, urine test, Keflex, Flagyl ED INTERVENTIONS: Rocephin, azithromycin, Diflucan DISCHARGE: At this time pt. is stable for d/c to home. Will provide printed patient care instructions, and any necessary prescriptions. Care plan and follow up instructions have been discussed with the patient prior to discharge. Patient take medication as directed, follow-up primary care provider, if worsening symptoms return to the emergency room Last Vital Signs Date Time Temp Pulse Resp B/P (MAP) Pulse Ox O2 Delivery O2 Flow Rate FiO2 08/22/19 13:46 98.8 20 158/94 96 Room Air 08/22/19 13:33 91 Disposition: HOME, SELF-CARE Condition: Stable Scripts Metronidazole* (FLAGYL*) 500 Mg Tablet 500 MG ORAL BID for 7 Days, #14 TAB Prov: Marcie Sparrow 08/22/19 Cephalexin* (KEFLEX*) 500 Mg Capsule 500 MG ORAL EVERY 12 HOURS for 7 Days, #14 CAP 0 Refills Prov: Marcie Sparrow 08/22/19 Patient Instructions: Vaginitis, Urinary Tract Infection Additional Instructions: Take medication as directed, follow-up with primary care provider, avoid drinking alcohol while taking Flagyl, if worsening symptoms return to the emergency room. Marcie Sparrow Aug 22, 2019 14:04
[2019-08-22] MEDS ORDERED: CEPHALEXIN500 MG ORAL (14:05)
[2019-08-22] MEDS ORDERED: METRONIDAZOLE500 MG ORAL (14:05)
[2019-08-22 14:27] VITALS: BP 158/94
== END 2019-08-22 14:28 | disposition home or self-care (01) ==
LOC: EMR 13:54
DX: N76.0 Acute vaginitis (principal); N39.0 Urinary tract infection, site not specified; Z88.0 Allergy status to penicillin; Z88.2 Allergy status to sulfonamides; Z88.8 Allergy status to other drugs, medicaments and biological substances
CPT/HCPCS: 81003; 81025; 96372; 96374; J0696; Q0144; Z7502; 99284

== ENCOUNTER 2019-11-08 12:03 | Emergency (ER) | payer MEDICAID, OTHER ==
[~2019-11-08] VITALS: Ht 167.6 cm; Wt 81.6 kg
[~2019-11-08 12:03] MED LIST changes: +CEPHALEXIN500 MG ORAL
[2019-11-08 12:30] VITALS: BP 180/90
--- NOTE | 2019-11-08 12:36 | Emergency Room Report ---
History of Present Illness General Chief Complaint: Medication Refill Source: Patient Present Illness HPI 49-year-old female presents with facial pain sharp shooting, ongoing for years, patient has been taking baclofen and Depakote, patient ran out, she has a history of trigeminal neuralgia since facial trauma, severity is moderate, intermittent, no known aggravating factors alleviating factors of medications patient presents for evaluation for medication refill Allergies: Coded Allergies: CITALOPRAM (Verified Allergy, Unknown, 10/19/18) LITHIUM (Unverified Allergy, Unknown, 06/13/14) PALIPERIDONE (Verified Allergy, Unknown, 10/13/17) PENICILLINS (Verified Allergy, Unknown, 02/27/17) Swelling and Seizures PREDNISONE (Verified Allergy, Unknown, 12/27/13) RISPERIDONE (Verified Allergy, Unknown, 10/13/17) SULFA (SULFONAMIDE ANTIBIOTICS) (Unverified Allergy, Unknown, 06/13/14) COVID-19 Screening Contact w/high risk pt: No Recent Travel to affected area: No Experienced COVID-19 symptoms?: No COVID-19 Testing performed SHIPPING AND RECEIVING OPERATOR: No Patient History Past Medical History: see triage record Last Menstrual Period: 10/23/19 Reviewed Nursing Documentation: PMH: Agreed; PSxH: Agreed Nursing Documentation-PMH Past Medical History: No History, Except For Hx Cardiac Problems: No - tonsillectomy Hx Hypertension: No Hx Pacemaker: No Hx Asthma: No Hx COPD: No Hx Diabetes: No Hx Cancer: No Hx Dialysis: No History Of Psychiatric Problem: Yes - depression Hx Neurological Problems: Yes - trigeminal neuralgia Hx Cerebrovascular Accident: No Hx Seizures: No Review of Systems All Other Systems: negative except mentioned in HPI Physical Exam Vital Signs Date Time Temp Pulse Resp B/P (MAP) Pulse Ox O2 Delivery O2 Flow Rate FiO2 11/08/19 12:10 98.1 84 16 180/90 (120) 98 Room Air General Appearance: well appearing, no apparent distress Head: normocephalic, atraumatic Eyes: bilateral eye PERRL, bilateral eye EOMI ENT: hearing grossly normal, normal voice Neck: full range of motion, supple Respiratory: no respiratory distress, speaking full sentences Neurologic: alert, normal gait Psychiatric: mood/affect normal Skin: no rash Medical Decision Making Diagnostic Impression: Primary Impression: Encounter for medication refill ER Course Baclofen and Depakote was refilled patient opted not to have a test patient aware of the risks and benefits of not having a test and teratogenicity to unborn children Last Vital Signs Date Time Temp Pulse Resp B/P (MAP) Pulse Ox O2 Delivery O2 Flow Rate FiO2 11/08/19 12:10 98.1 84 16 180/90 (120) 98 Room Air Disposition: HOME, SELF-CARE Condition: Stable Scripts Divalproex Sodium* (DEPAKOTE*) 250 Mg Tablet.dr 250 MG PO TID, #90 TAB Prov: Roel Alvarado MD 11/08/19 Baclofen (Baclofen) 20 Mg Tablet 20 MG ORAL THREE TIMES A DAY, #90 TAB Prov: Roel Alvarado MD 11/08/19 Referrals: [facility] Patient Instructions: Medicine Refill at the Emergency Department Additional Instructions: The patient was provided with discharge instructions, notified to follow-up with a primary care doctor and or specialist in the next 24-48 hours, and to return to the ED if they have worsening of their symptoms. Please note that this report is being documented using [employer] technology. This can lead to erroneous entry secondary to incorrect interpretation by the dictating instrument. Roel Alvarado MD Nov 08, 2019 12:36
[2019-11-08] MEDS ORDERED: DEPAKOTE250 MG PO (12:41)
[2019-11-08] MEDS ORDERED: LIORESAL20 MG ORAL (12:41)
[2019-11-08 12:47] VITALS: BP 180/90
== END 2019-11-08 12:47 | disposition home or self-care (01) ==
LOC: EMR 12:40
DX: Z76.0 Encounter for issue of repeat prescription (principal); G50.0 Trigeminal neuralgia; Z88.0 Allergy status to penicillin; Z88.2 Allergy status to sulfonamides; Z88.8 Allergy status to other drugs, medicaments and biological substances; Z79.899 Other long term (current) drug therapy
CPT/HCPCS: 99282

== ENCOUNTER 2019-12-02 18:26 | Emergency (ER) | payer OTHER ==
[~2019-12-02] VITALS: Ht 165.1 cm; Wt 81.6 kg
[~2019-12-02 18:26] MED LIST changes: +DEPAKOTE250 MG PO; +LIORESAL20 MG ORAL
--- NOTE | 2019-12-02 18:39 | NUR ---
ED Nurse Note: Pt walked in from home c/o severe headache x 3 weeks. 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 Denies recent injury. Respirations even and unlabored on room air. A+Ox4, speaking in complete sentences. BP elevated in the 170s systolic. All other vitals stable as documented.
[2019-12-02 18:42] VITALS: BP 179/97
[2019-12-02] MEDS ORDERED: IBUPROFEN600 M1 ORAL (18:57)
[2019-12-02] MEDS ORDERED: TYLENOL325 MG ORAL (18:57)
[2019-12-02] MEDS ORDERED: NORVASC10 MG ORAL (18:57)
--- NOTE | 2019-12-02 19:04 | NUR ---
HAND-OFF: Report given to ZULMA Garcia. Pt in stable condition; plan of care endorsed.
--- NOTE | 2019-12-02 19:05 | NUR ---
ED Nurse Note: Endorsed care of pt, pt awake laying in bed. Meds given by ZULMA Jacques. Will continue to monitor and repeat BP reading.
--- NOTE | 2019-12-02 19:32 | Emergency Room Report ---
History of Present Illness General Chief Complaint: Headache Source: Patient Present Illness HPI Disclaimer: Please note that this report is being documented using [employer] technology. This can lead to erroneous entry secondary to incorrect interpretation by the dictating instrument. HPI: 49-year-old female history of trigeminal neuralgia, chronic headaches, presents for evaluation of headache and requesting medication refills. The patient states she has had an ongoing headache for the past 3 weeks. States it is frontal, temporal and behind her eyes can associate with throbbing and worsening of her "trigeminal neuralgia" symptoms including tingling and numbness over the left face. These are chronic symptoms and chronic headache. She states she ran out of her amlodipine medication request a refill. She believes her headaches are related to her elevated blood pressures. Also requesting a prescription for Motrin 600 mg. She has been taking 1 dose of 200 mg Motrin occasionally for headache without significant relief. Denies nausea, vomiting, dizziness, changes in vision, syncope, chest pain, palpitations, recent illness. PMH: Depression, schizophrenia, trigeminal neuralgia, chronic headaches PSH: Reviewed Allergies: Reviewed Social Hx: Reviewed Allergies: Coded Allergies: CITALOPRAM (Verified Allergy, Unknown, 10/19/18) LITHIUM (Unverified Allergy, Unknown, 06/13/14) PALIPERIDONE (Verified Allergy, Unknown, 10/13/17) PENICILLINS (Verified Allergy, Unknown, 02/27/17) Swelling and Seizures PREDNISONE (Verified Allergy, Unknown, 12/27/13) RISPERIDONE (Verified Allergy, Unknown, 10/13/17) SULFA (SULFONAMIDE ANTIBIOTICS) (Unverified Allergy, Unknown, 06/13/14) Uncoded Allergies: SULFA (Allergy, Unknown, 12/02/19) COVID-19 Screening Contact w/high risk pt: No Recent Travel to affected area: No Experienced COVID-19 symptoms?: No COVID-19 Testing performed SENIOR SUSTAINABILITY CONSULTANT: No - 6 mos ago COVID-19 Screening: Negative COVID-19 COVID-19 Testing Source: [facility] hosp Patient History Last Menstrual Period: 2 week ago Now: No Nursing Documentation-PMH Hx Cardiac Problems: No - tonsillectomy Hx Hypertension: No Hx Pacemaker: No Hx Asthma: No Hx COPD: No Hx Diabetes: No Hx Cancer: No Hx Dialysis: No Hx Neurological Problems: Yes - trigeminal neuralgia Hx Cerebrovascular Accident: No Hx Seizures: No Review of Systems All Other Systems: negative except mentioned in HPI Physical Exam Vital Signs Date Time Temp Pulse Resp B/P (MAP) Pulse Ox O2 Delivery O2 Flow Rate FiO2 12/02/19 18:30 98.8 89 19 184/99 (127) 98 Room Air General: Awake and alert, no acute distress HEENT: NC/AT. EOMI. PERRLA. No nystagmus. No facial droop. No tenderness over the frontal or maxillary sinuses. Resp: Normal work of breathing Skin: Intact. No abrasions, laceration or rash over the exposed skin MSK: Normal tone and bulk. Moving all extremities. No obvious deformity. Neuro: Awake and alert. Mentating appropriately Medical Decision Making Diagnostic Impression: Primary Impression: Headache Additional Impressions: Encounter for medication refill Hypertension ER Course Is a 49-year-old female presenting for evaluation of headaches and requesting medication refills. Differential includes is not limited to tension headache, cluster headache, migraine headache, generalized headache, hypertension, hypertensive urgency, hypertensive emergency, intercranial mass. Patient denies any trauma and the headache has been ongoing for the past 3 weeks without significant change. Low suspicion for intracranial injury at this time however I did offer the patient a CT scan as well as labs for elevated blood pressures. She declined stating that it feels like a typical headache and would do better with Motrin but should it not she would return for labs and imaging. She does not want work-up at this time but is requesting a dose of her amlodipine which was given to the patient in the ED. She arrives hypertensive and was given dose of her home antihypertensive medications. Feeling somewhat better after receiving Motrin. Stable for outpatient follow-up at this time. Discussed reasons to return to the ED. She understands and agrees with the treatment plan. Last Vital Signs Date Time Temp Pulse Resp B/P (MAP) Pulse Ox O2 Delivery O2 Flow Rate FiO2 12/02/19 19:02 89 179/97 12/02/19 18:42 98.2 20 97 Room Air Disposition: HOME, SELF-CARE Condition: Stable Scripts Ibuprofen* (MOTRIN*) 600 Mg Tablet 600 MG ORAL Q6H PRN for For Pain, #30 TAB 0 Refills Prov: Hayes Hardwick MD 12/02/19 Amlodipine Besylate (Norvasc) 10 Mg Tablet 10 MG ORAL DAILY, #30 TAB Prov: Hayes Hardwick MD 12/02/19 Acetaminophen (Tylenol) 325 Mg Tablet 650 MG ORAL Q6H PRN for Prn Pain/Headache/Temp > 101, #20 TAB 0 Refills Prov: Hayes Hardwick MD 12/02/19 Referrals: [facility] Patient Instructions: General Headache Without Cause Additional Instructions: Please follow-up with your primary care doctor in the next 1 to 3 days to discuss this emergency department visit and for reevaluation. Follow-up with your neurologist at your scheduled appointment to discuss chronic headaches and trigeminal neuralgia. If you have any new or worsening symptoms please return to the emergency department for reevaluation. Please note that this report is being documented using [employer] technology. This can lead to erroneous entry secondary to incorrect interpretation by the dictating instrument. Hayes Hardwick MD Dec 02, 2019 19:32
[2019-12-02 19:39] VITALS: BP 182/76
--- NOTE | 2019-12-02 19:40 | NUR ---
ED Nurse Note: BP 182/76 EDMD aware.
[2019-12-02 20:04] VITALS: BP 179/86
--- NOTE | 2019-12-02 20:04 | NUR ---
ED Nurse Note: BP 179/86 EDMD aware.
[2019-12-02 20:16] VITALS: BP 172/86
--- NOTE | 2019-12-02 20:16 | NUR ---
ER DISCHARGE NOTE: Patient is cleared to be discharged per ERMD, pt reports SHAW has improved 2/, pt was given paper prescriptions and DC paperwork with instructions to f/u with PMD. Also encouraged pt to purchase BP machine and check BP prior to taking BP medication. pt is aox4, on room air, with stable vital signs. ID band removed. pt is able to ambulate with steady gait. pt took all belongings.
== END 2019-12-02 20:16 | disposition home or self-care (01) ==
LOC: EMR 19:12
DX: R51.9 Headache, unspecified (principal); I10 Essential (primary) hypertension; Z76.0 Encounter for issue of repeat prescription; G50.0 Trigeminal neuralgia; F32.9 Major depressive disorder, single episode, unspecified; F20.9 Schizophrenia, unspecified; Z88.2 Allergy status to sulfonamides; Z88.0 Allergy status to penicillin; Z88.8 Allergy status to other drugs, medicaments and biological substances
CPT/HCPCS: 99282

== ENCOUNTER 2019-12-06 18:44 | Emergency (ER) | payer OTHER ==
[~2019-12-06] VITALS: Ht 165.1 cm; Wt 81.6 kg
[~2019-12-06 18:44] MED LIST changes: +IBUPROFEN600 M1 ORAL
[2019-12-06 18:52] VITALS: BP 177/96
--- NOTE | 2019-12-06 19:03 | NUR ---
HAND-OFF: Report given to Radha MAYA.
--- NOTE | 2019-12-06 19:04 | NUR ---
ED Nurse Note: Endorsed care of pt. Pt walked into ED from home c/o severe SHAW and facial pain 11/30. Pt was seen in our ED earlier this week for same symptoms. Pt is AAOx4, breathing even and unlabored. No acute distress noted, vitals stable as documented.
--- NOTE | 2019-12-06 19:09 | NUR ---
ED Nurse Note: sanitation technician at bedside
--- NOTE | 2019-12-06 19:11 | NUR ---
ED Nurse Note: pt went down to CT via w/c accompanied by CT staff, pt in stable condition
--- NOTE | 2019-12-06 19:30 | NUR ---
ED Nurse Note: pt back from CT in stable condition
[2019-12-06 19:33] LABS: APPEARANCE,URINE CLEAR; BILIRUBIN, URINE NEGATIVE (NEGATIVE); GLUCOSE, URINE (UA) NEGATIVE (NEGATIVE); KETONES,URINE NEGATIVE (NEGATIVE); LEUKOCYTE ESTERASE ,URINE NEGATIVE (NEGATIVE); NITRITE,URINE NEGATIVE (NEGATIVE); PH,URINE 6 (4.5-8.0); PROTEIN,URINE NEGATIVE (NEGATIVE); UROBILINOGEN,URINE 1 MG/DL (0.0-1.0)
[2019-12-06 19:34] LABS: COLOR,URINE YELLOW
--- NOTE | 2019-12-06 19:40 | NUR ---
ED Nurse Note: blood sent to lab
--- NOTE | 2019-12-06 19:42 | Diagnostic Imaging Report ---
EXAM: CT Head Without Intravenous Contrast CLINICAL HISTORY: DIZZY TECHNIQUE: Axial computed tomography images of the head/brain without intravenous contrast. CTDI is 53.40 mGy and DLP is 938.70 mGy-cm. One or more of the following dose reduction techniques were used: automated exposure control, adjustment of the mA and/or kV according to patient size, use of iterative reconstruction technique. COMPARISON: 09/05/12 FINDINGS: Brain: Unremarkable. No hemorrhage. No significant white matter disease. No edema. Ventricles: Unremarkable. No ventriculomegaly. Bones/joints: Unremarkable. No acute fracture. Soft tissues: Unremarkable. Sinuses: Unremarkable as visualized. No acute sinusitis. Mastoid air cells: Unremarkable as visualized. No mastoid effusion. IMPRESSION: Unremarkable head/brain CT.
[2019-12-06 19:52] LABS: BASOPHILS % (AUTO) 1.4 % (0.0-2.0); EOSINOPHILS % (AUTO) 2.8 % (0.0-3.0); HEMATOCRIT 42.1 % (37.0-47.0); HEMOGLOBIN 13.7 G/DL (12.0-16.0); LYMPHOCYTES % (AUTO) 34.2 % (20.0-45.0); MEAN CORPUSCULAR VOLUME 92 FL (80-99); MONOCYTES % (AUTO) 8.1 % (1.0-10.0); NEUTROPHILS % (AUTO) 53.5 % (45.0-75.0); PLATELET COUNT 259 K/UL (150-450); RED BLOOD COUNT 4.57 M/UL (4.20-5.40); RED CELL DISTRIBUTION WIDTH 14.4 % (11.6-14.8); WHITE BLOOD COUNT 6.2 K/UL (4.8-10.8)
[2019-12-06 20:02] LABS: ANION GAP 8 mmol/L (5-15); BLOOD UREA NITROGEN 11 mg/dL (7-18); CALCIUM 8.4 MG/DL (8.5-10.1); CARBON DIOXIDE 29 MMOL/L (21-32); CHLORIDE 106 MMOL/L (98-107); CREATININE 0.8 MG/DL (0.55-1.30); POTASSIUM 3.4 MMOL/L (3.5-5.1); SODIUM 143 MMOL/L (136-145)
[2019-12-06 20:11] LABS: ALANINE AMINOTRANSFERASE 10 U/L (12-78); ALBUMIN 3.5 G/DL (3.4-5.0); ALKALINE PHOSPHATASE 59 U/L (46-116); ASPARTATE AMINO TRANSFERASE 13 U/L (15-37); BILIRUBIN,TOTAL 0.3 MG/DL (0.2-1.0)
--- NOTE | 2019-12-06 20:15 | Emergency Room Report ---
History of Present Illness General Chief Complaint: Headache Source: Patient Present Illness HPI 49-year-old female with history of trigeminal neuralgia and low back spasm who was seen at [facility] few days ago here requesting a head CT scan. Patient reports that few days ago when she first came in she did not want to have any imaging or labs done and was told by the ER physician to return to the ED if not feeling any better. Patient has not follow-up primary doctor. Denies any fall or injury, dizziness, slurred speech, nausea vomiting, reports having intermittent chest pain without any radiation. Denies any palpitation, urinary symptoms. Denies any heavy lifting. Has been taking baclofen for muscle spasms. Denies tobacco smoking drug use. Denies alcohol intake. Also has hist ory of hypertension requesting refill of Norvasc. Reports that she often feels pressure on face and head even upon palpation and when the wind blows to her face. Has full range of facial bones Allergies: Coded Allergies: CITALOPRAM (Verified Allergy, Unknown, 10/19/18) LITHIUM (Unverified Allergy, Unknown, 06/13/14) PALIPERIDONE (Verified Allergy, Unknown, 10/13/17) PENICILLINS (Verified Allergy, Unknown, 02/27/17) Swelling and Seizures PREDNISONE (Verified Allergy, Unknown, 12/27/13) RISPERIDONE (Verified Allergy, Unknown, 10/13/17) SULFA (SULFONAMIDE ANTIBIOTICS) (Unverified Allergy, Unknown, 06/13/14) Uncoded Allergies: SULFA (Allergy, Unknown, 12/02/19) COVID-19 Screening Contact w/high risk pt: No Recent Travel to affected area: No Experienced COVID-19 symptoms?: Yes 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 COVID-19 Screening: Negative COVID-19 COVID-19 Testing Source: rapid Patient History Past Medical History: see triage record Past Surgical History: none Pertinent Family History: none Last Menstrual Period: 2 weeks ago Now: No : 4 Para: 4 Immunizations: UTD Reviewed Nursing Documentation: PMH: Agreed; PSxH: Agreed Nursing Documentation-PMH Past Medical History: No History, Except For Hx Cardiac Problems: No - tonsillectomy Hx Hypertension: No Hx Pacemaker: No Hx Asthma: No Hx COPD: No Hx Diabetes: No Hx Cancer: No Hx Dialysis: No Hx Neurological Problems: Yes - trigeminal neuralgia Hx Cerebrovascular Accident: No Hx Seizures: No Review of Systems All Other Systems: negative except mentioned in HPI Physical Exam Vital Signs Date Time Temp Pulse Resp B/P (MAP) Pulse Ox O2 Delivery O2 Flow Rate FiO2 12/06/19 18:47 98.8 85 20 177/96 (123) 94 Room Air Sp02 EP Interpretation: reviewed, normal General Appearance: no apparent distress, alert, GCS 15, non-toxic Head: normocephalic, atraumatic Eyes: bilateral eye normal inspection, bilateral eye PERRL ENT: hearing grossly normal, normal pharynx, no angioedema, normal voice Neck: full range of motion, supple, no meningismus, no bony tend, supple/symm/no masses Respiratory: chest non-tender, lungs clear, normal breath sounds, no rhonchi, no respiratory distress, no retraction, no accessory muscle use, no wheezing, speaking full sentences Cardiovascular #1: regular rate, rhythm, no edema Cardiovascular #2: 2+ carotid (R), 2+ carotid (L), 2+ radial (R), 2+ radial (L), 2+ dorsalis pedis (R), 2+ dorsalis pedis (L) Gastrointestinal: normal bowel sounds, non tender, soft, non-distended, no guarding, no rebound Rectal: deferred Genitourinary: no CVA tenderness Musculoskeletal: back normal, normal range of motion, no calf tenderness, gait/ station normal, non-tender Neurologic: alert, motor strength/tone normal, oriented x3, sensory intact, res ponsive, speech normal Psychiatric: judgement/insight normal, memory normal, mood/affect normal, no suicidal/homicidal ideation Skin: no rash Lymphatic: no adenopathy Medical Decision Making PA Attestation All diagnosis and treatment plans were discussed and reviewed by my supervising physician Dr. Singh Diagnostic Impression: Primary Impression: Headache Additional Impressions: Muscle spasm Encounter for medication refill ER Course 49-year-old female with history of trigeminal neuralgia and low back spasm who was seen at [facility] few days ago here requesting a head CT scan. Patient reports that few days ago when she first came in she did not want to have any imaging or labs done and was told by the ER physician to return to the ED if not feeling any better. Patient has not follow-up primary doctor. Denies any fall or injury, dizziness, slurred speech, nausea vomiting, reports having intermittent chest pain without any radiation. Denies any palpitation, urinary symptoms. Denies any heavy lifting. Has been taking baclofen for muscle spasms. Denies tobacco smoking drug use. Denies alcohol intake. Also has history of hypertension requesting refill of Norvasc. Reports that she often fe els pressure on face and head even upon palpation and when the wind blows to her face. Has full range of facial bones Ddx considered but are not limited to: cerebral hematoma, concussion, skull fracture, head contusion, migraine headache, tension headache, trigeminal neuralgia, hypertensive urgency, hypertensive emergency Lumbar sprain versus strain versus fracture versus muscle spasm versus chronic low back pain, medication refill for hypertension Vital signs: are WNL, pt. is afebrile H&PE are most consistent with: Chronic headache, chronic low back pain ORDERS: head CT no contrast, CBC, CMP, troponin, EKG, chest x-ray, UA, tox, urine test, Robaxin, Motrin, Norvasc, lidocaine patch ED INTERVENTIONS: NS bolus At this time no further imaging lower back needed patient reports having her for a long time without any fall or or injury recently. Advised patient to follow-up with physical therapy. DISCHARGE: At this time pt. is stable for d/c to home. Will provide printed jeremi ent care instructions, and any necessary prescriptions. Care plan and follow up instructions have been discussed with the patient prior to discharge. Patient take medication as directed, follow primary care provider for further evaluation, referral to neurologist, if worsening symptoms return to the emergency room EKG Diagnostic Results Rate: normal Rhythm: NSR ST Segments: no acute changes Other Impression No acute ST changes ASA given to the pt in ED: No Chest X-Ray Diagnostic Results Chest X-Ray Diagnostic Results : Chest X-Ray Ordered: Yes # of Views/Limited/Complete: 1 View Indication: Chest Pain EP Interpretation: Yes PA Xray: Interpretation reviewed, by supervising MD, and agrees with findings. Interpretation: no consolidation, no effusion, no pneumothorax, no acute cardiopulmonary disease Impression: No acute disease Electronically Signed by: Marcie Khan PA-C CT/MRI/US Diagnostic Results CT/MRI/US Diagnostic Results : Imaging Test Ordered: Head CT no contrast Impression COMPARISON: 09/05/12 FINDINGS: Brain: Unremarkable. No hemorrhage. No significant white matter disease. No edema. Ventricles: Unremarkable. No ventriculomegaly. Bones/joints: Unremarkable. No acute fracture. Soft tissues: Unremarkable. Sinuses: Unremarkable as visualized. No acute sinusitis. Mastoid air cells: Unremarkable as visualized. No mastoid effusion. IMPRESSION: Unremarkable head/brain CT. Last Vital Signs Date Time Temp Pulse Resp B/P (MAP) Pulse Ox O2 Delivery O2 Flow Rate FiO2 12/06/19 18:52 98.8 85 20 177/96 94 Room Air Disposition: HOME, SELF-CARE Condition: Stable Scripts Lidocaine Patch* (Lidoderm Patch*) 1 Each Adh..patch 1 PATCH TOPIC DAILY, #30 PATCH Patch(es) may remain in place for up to 12 hours in any 24-hour period. Prov: Marcie Sparrow 12/06/19 Methocarbamol* (ROBAXIN-500*) 500 Mg Tablet 500 MG ORAL TID PRN for For Pain, #15 TAB 0 Refills Prov: Marcie Sparrow 12/06/19 Ibuprofen* (MOTRIN*) 600 Mg Tablet 600 MG ORAL Q6H PRN for For Pain, #30 TAB 0 Refills Prov: Marcie Sparrow 12/06/19 Amlodipine Besylate (Norvasc) 10 Mg Tablet 10 MG ORAL DAILY, #30 TAB Prov: Marcie Sparrow 12/06/19 Referrals: NON PHYSICIAN (PCP) Patient Instructions: General Headache Without Cause, Medicine Refill at the Emergency Department, Nonspecific Chest Pain Additional Instructions: Patient take medication as directed, follow primary care provider for further evaluation, referral to neurologist, if worsening symptoms return to the emergency room. MRI may be needed. Marcie Sparrow Dec 06, 2019 20:15
[2019-12-06] MEDS ORDERED: NORVASC10 MG ORAL (20:18)
[2019-12-06] MEDS ORDERED: ROBAXIN-500MG ORAL (20:18)
[2019-12-06] MEDS ORDERED: IBUPROFEN600 M1 ORAL (20:18)
[2019-12-06] MEDS ORDERED: LIDODERM700 M1 TOPIC (20:18)
[2019-12-06 20:26] VITALS: BP 158/89
--- NOTE | 2019-12-06 20:26 | NUR ---
ER DISCHARGE NOTE: Patient is cleared to be discharged per ERMD, pt is aox4, on room air, with stable vital signs. pt states pain has improved. pt was given dc and paper prescription with instructions to f/u with neurologist and PMD, pt was able to verbalize understanding, pt id band and iv site removed without complications. pt is able to ambulate with steady gait. pt took all belongings.
--- NOTE | 2019-12-07 16:37 | Diagnostic Imaging Report ---
Indication: Chest pain Technique: One view of the chest Comparison: 03/18/2019 Findings: Lungs and pleural spaces are clear. Heart size is normal. No significant change Impression: No acute process
--- NOTE | 2019-12-08 20:03 | Cardiology Report ---
APPROVED REPORT EKG Measurement Heart [id number] MD [id number] <Conclusion> Normal sinus rhythm Possible Left atrial enlargement Septal infarct, age undetermined Abnormal ECG
== END 2019-12-06 20:26 | disposition home or self-care (01) ==
LOC: EMR 19:22
DX: R51.9 Headache, unspecified (principal); M62.830 Muscle spasm of back; Z76.0 Encounter for issue of repeat prescription; G50.0 Trigeminal neuralgia; Z88.0 Allergy status to penicillin; Z88.2 Allergy status to sulfonamides; Z88.8 Allergy status to other drugs, medicaments and biological substances
CPT/HCPCS: 36415; 70450; 71045; 80053; 80307; 81003; 81025; 84484; 85025; 93005; 96360; G0480; J7030; Z7502; 99284

== ENCOUNTER 2020-05-08 06:31 | Emergency (ER) | payer OTHER ==
[~2020-05-08] VITALS: Ht 170.2 cm; Wt 77.1 kg
[~2020-05-08 06:31] MED LIST changes: +LIDODERM700 M1 TOPIC; +ROBAXIN-500MG ORAL
[2020-05-08 07:20] VITALS: BP 218/103
[2020-05-08] MEDS ORDERED: NORVASC10 MG ORAL (07:22)
--- NOTE | 2020-05-08 07:22 | NUR ---
pt arrives to ER with complaints of chronic headaches and elevated blood pressure. pt states being out of htn medications. pt appears calm and cooperative at this time. pt describe chronic headache as a dull pain. BP 218/103
[2020-05-08] MEDS ORDERED: TYLENOL325 MG ORAL (07:24)
[2020-05-08] MEDS ORDERED: Acetaminophen 500mg (ES) tab ORAL ONE (07:34)
[2020-05-08] MEDS: Acetaminophen 500mg (ES) tab ORAL ONE (07:37)
--- NOTE | 2020-05-08 07:40 | NUR ---
patient dropped some of her medication on the floor . taken override from the pxis to complete the dose since patient dropped it on the floor
[2020-05-08 07:57] VITALS: BP 179/100
[2020-05-08 08:17] VITALS: BP 190/100
--- NOTE | 2020-05-08 08:19 | NUR ---
repeat blood pressure 190/100 notified
[2020-05-08 08:45] VITALS: BP 181/93
--- NOTE | 2020-05-09 16:40 | Emergency Room Report ---
History of Present Illness General Chief Complaint: Headache Source: Patient Present Illness HPI Patient is a 49-year-old female presents for headache and medication refill. She had run out of her blood pressure medications. Denies any recent trauma. Patient requested refill of Norvasc. Denies any fever or neck stiffness. Prior history of similar headaches in the past. Also requested of note for work cl earance. 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 COVID-19 Screening: Negative COVID-19 Patient History Past Medical History: see triage record Reviewed Nursing Documentation: PMH: Agreed; PSxH: Agreed Nursing Documentation-PMH Hx Cardiac Problems: No Hx Hypertension: Yes Hx Pacemaker: No Hx Asthma: No Hx COPD: No Hx Diabetes: No Hx Cancer: No Hx Gastrointestinal Problems: No Hx Dialysis: No History Of Psychiatric Problem: Yes Hx Neurological Problems: No Hx Cerebrovascular Accident: No Hx Seizures: No Review of Systems All Other Systems: negative except mentioned in HPI Physical Exam Vital Signs Date Time Temp Pulse Resp B/P (MAP) Pulse Ox O2 Delivery O2 Flow Rate FiO2 05/08/20 07:16 98.1 102 18 218/103 (141) 100 Room Air General Appearance: well appearing, no apparent distress, alert, GCS 15 Head: normocephalic, atraumatic ENT: hearing grossly normal, normal voice Neck: full range of motion, supple Respiratory: no respiratory distress, speaking full sentences Cardiovascular #1: normal inspection, no edema Gastrointestinal: normal inspection Musculoskeletal: normal inspection Neurologic: alert, motor strength/tone normal, drafter commercial III-XII nml as tested, oriented x3, cerebellar normal, normal gait Psychiatric: other - Flat affect Skin: normal color, no rash Medical Decision Making Diagnostic Impression: Primary Impression: Hypertension ER Course Patient presents for hypertension and headache. Differential diagnosis include was not limited to medication withdrawal, essential hypertension, headache among others. Patient has a benign exam and does not appear to require any imaging or laboratory testing at this time. Patient was given blood pressure medication with improvement in her symptoms. patient was advised to follow-up with her primary care physician for recheck. This medical record is generated with [employer] crayon sorting machine feeder software. There may be some crayon sorting machine feeder discrepancies rel ated to use of this software Last Vital Signs Date Time Temp Pulse Resp B/P (MAP) Pulse Ox O2 Delivery O2 Flow Rate FiO2 05/08/20 08:45 181/93 05/08/20 08:17 78 18 98 05/08/20 07:20 98.1 Room Air Status: improved Disposition: HOME, SELF-CARE Condition: Stable Scripts Acetaminophen (Tylenol) 325 Mg Tablet 650 MG ORAL Q6H PRN for Prn Pain/Headache/Temp > 101, #20 TAB 0 Refills Prov: Ignacio Aguilar MD 05/08/20 Amlodipine Besylate (Norvasc) 10 Mg Tablet 10 MG ORAL DAILY, #30 TAB Prov: Ignacio Aguilar MD 05/08/20 Referrals: DAVIN KATHLEEN,REFERRING (PCP) Patient Instructions: General Headache Without Cause Additional Instructions: Follow up with your doctor for medical clearance for work. Return if any concerns. Hospital is closing May 21. Ignacio Aguilar MD May 09, 2020 16:40
== END 2020-05-08 08:53 | disposition home or self-care (01) ==
LOC: EMR 07:20
DX: I10 Essential (primary) hypertension (principal); R51.9 Headache, unspecified; K21.9 Gastro-esophageal reflux disease without esophagitis; Z88.0 Allergy status to penicillin; Z88.2 Allergy status to sulfonamides
CPT/HCPCS: 99282